=== PATIENT | female | born 1965 | race Caucasian/White ===

== ENCOUNTER 2021-05-19 19:05 | Inpatient (IN) | payer BC, SELFPAY ==
--- NOTE | ~2021-05-19 | US_ITS ---
EXAMINATION: US venous doppler [facility] DATE: 05/20/2021 10:35 INDICATION: Pleuritic right chest pain TECHNIQUE: [place]illa scale images without and with compression and Doppler images of the bilateral lower e xtremity veins were obtained. COMPARISON: None FINDINGS: The right common femoral vein, profunda femoral vein, femoral vein, popliteal vein, peroneal trunk, p osterior tibial veins, and greater saphenous vein are patent. The left common femoral vein, profunda femoral vein, femoral vein, popliteal vein, peroneal trunk, po sterior tibial veins, and greater saphenous vein are patent. A 4.3 cm left Rai cyst is noted. IMPRESSION: 1. Patent bilateral lower extremity veins. No evidence of deep venous thrombosis. Reviewed, dictated and finalized at location B. IMPRESSION: 1. Patent bilateral lower extremity veins. No evidence of deep venous thrombosi s.
--- NOTE | ~2021-05-19 | CT_ITS ---
EXAMINATION: CTA chest PE abdomen pel DATE: 05/19/2021 20:38 INDICATION: Right-sided pleuritic chest pain and right-sided abdominal pain. TECHNIQUE: Computed tomography (CT) pulmonary angiogram of the chest was performed with 100 mL Omnipa que-350 intravenous contrast. Additional 3D reconstructions utilizing coronal maximum intensity proje ction (MIP) were performed. CT of the abdomen and pelvis was performed with intravenous contrast util izing the same contrast bolus following a short delay. Automated exposure control and iterative recon struction technique were employed. The dose-length product was 1265.46 mGy-cm. COMPARISON: None FINDINGS: Chest: Excellent contrast opacification of the pulmonary arteries. There is mild streak artifact from dense contrast in the superior vena cava and right atrium. Mild scattered respiratory motion artifact which decreases sensitivity and specificity in some of the smaller subsegmental pulmonary arteries. Low-at tenuation pulmonary arterial filling defects within multiple pulmonary arteries in both lungs includi ng the lobar and multiple segmental and subsegmental pulmonary arteries in the left and right lower l obes and the medial segmental pulmonary artery of the right middle lobe consistent with pulmonary emb olism with moderate clot burden. There is a peripheral region of groundglass opacity in the posterior basilar segment of the left lower lobe downstream from one of the pulmonary emboli and suspicious fo r pulmonary infarct although differential would include pneumonia. There are bands of discoid atelect asis in the lingula and bilateral lower lobes. Diffuse subtle groundglass opacity throughout the lung s with small regions of a lucent subsegmental air trapping likely related to expiratory phase of imag ing with concave posterior wall of the intrathoracic trachea. Dependently layering small right pleura l effusion. Heart size is normal. No leftward bowing of the ventricular septum to suggest right heart strain. No pericardial effusion. Thoracic aorta is normal in caliber with no dissection. There is fl uid and debris within the somewhat patulous mid to distal esophagus. No pathologically enlarged thora cic lymphadenopathy. Mild lower thoracic levoscoliosis with mild thoracic spondylosis. Abdomen/pelvis: Liver, gallbladder, spleen, pancreas, bilateral adrenal glands and kidneys are normal. Moderate amoun t of stool scattered throughout the colon. No dilated loops of bowel to suggest obstruction. The appe ndix is not visualized. No pericecal inflammatory change to suggest acute appendicitis. The uterus is not identified and has likely been surgically resected. Bladder is normal. No free intraperitoneal g as or fluid. No pathologically enlarged abdominal or pelvic lymphadenopathy. There is calcified ather osclerosis of the aorta and many of the other arteries. Incidentally noted are 3 right-sided renal ar teries. Small fat-containing umbilical hernia with suggestion of possible prior mesh repair. Mild lum bar spondylosis. IMPRESSION: 1. Bilateral pulmonary emboli with moderate clot burden and likely pulmonary infarct in the posterior basilar right lower lobe. Differential for the latter includes less likely pneumonia. 2. No acute intra-abdominal/pelvic process. Reviewed, dictated and finalized at location A. IMPRESSION: 1. Bilateral pulmonary emboli with moderate clot burden and likely pulmonary in farct in the posterior basilar right lower lobe. Differential for the latter in cludes less likely pneumonia. 2. No acute intra-abdominal/pelvic process.
[2021-05-19 19:10] VITALS: BP 104/65; PULSE 105; RESP 20; TEMP 36.7; O2SAT 99
--- NOTE | 2021-05-19 19:36 | ED.GENADULT ---
HPI - General Adult General Chief complaint: Abdominal Pain Stated complaint: side pain/hemoptysis Time Seen by Provider: 05/19/21 19:24 History of Present Illness HPI narrative: Patient is a 55-year-old female presents the emergency department with chief complaint of right-sided upper back and abdominal pain. The patient reports that she has a sharp type pain states is worse with deep breaths and worse with movement the patient also reports she has pain in the right side of her abdomen. Patient reports she was seen in the emergency department [facility]. The patient reports she had a IV contrast CT scan of the chest abdomen pelvis and was told that she may have diverticulitis she was treated with antibiotics but the patient reports she continues to have pain. Patient states not improved by anything. Related Data Allergies Allergy/AdvReac Type Severity Reaction Status Date / Time No Known Allergies Allergy Verified 05/19/21 19:49 Review of Systems Review of Systems: Narrative: A 10 system review of systems was completed on the patient and is negative except for what is stated in the HPI. Nursing and ancillary documentation was reviewed. [facility] Social History Social History Gender identity (if verbalized by the patient): Female Exam Narrative: Exam Narrative: GENERAL: Well-appearing, well-nourished, and in no acute distress. HEAD: Normocephalic, atraumatic. EYES: PERRLA and EOMI. ENT: Nares clear, no rhinorrhea or epistaxis. Mucous membranes moist. NECK: Supple. CHEST: Clear to auscultation. No respiratory distress. Tenderness to palpation in the right posterior hemithorax HEART: Regular rate and rhythm. No murmur heard. Normal peripheral pulses. ABDOMEN: Soft, tender to palpation the right lower quadrant, nondistended, normal active bowel sounds. EXTREMITIES: Normal range of motion. No edema. SKIN: Warm, dry, no rash. NEURO: No focal deficits. Alert and oriented x3. PSYCH: Normal mood and affect. Course Vital Signs Vital signs: Vital Signs Temperature 36.7 C 05/19/21 19:10 Pulse Rate 105 H 05/19/21 19:10 Respiratory Rate 20 05/19/21 19:10 Blood Pressure 104/65 05/19/21 19:10 Pulse Oximetry 99 05/19/21 19:10 Temperature 36.7 C 05/19/21 19:10 Pulse Rate 105 H 05/19/21 19:10 Respiratory Rate 20 05/19/21 19:10 Blood Pressure 104/65 05/19/21 19:10 Pulse Oximetry 99 05/19/21 19:10 Medical Decision Making Vital Signs Vital Signs: Vital Signs Temperature 36.7 C 05/19/21 19:10 Pulse Rate 105 H 05/19/21 19:10 Respiratory Rate 20 05/19/21 19:10 Blood Pressure 104/65 05/19/21 19:10 Pulse Oximetry 99 05/19/21 19:10 Temperature 36.7 C 05/19/21 19:10 Pulse Rate 105 H 05/19/21 19:10 Respiratory Rate 20 05/19/21 19:10 Blood Pressure 104/65 05/19/21 19:10 Pulse Oximetry 99 05/19/21 19:10 Lab Data Result diagrams: 05/19/21 19:44 05/19/21 19:44 Labs: Lab Results 05/19/21 05/19/21 05/19/21 Range/Units 19:44 19:44 19:44 WBC 10.2 H (4.5-10.0) K/mm3 RBC 4.23 (4.2-5.4) M/mm3 Hgb 12.7 (12.0-15.0) g/dL Hct 38.8 (37.0-47.0) % MCV 91.7 (80-100) fl MCH 30.0 (26-34) pg MCHC 32.7 (32-36) g/dl RDW 13.5 (11.5-14.5) % Plt Count 219 (150-375) k/mm3 MPV 11.8 H (7.4-10.4) fl Immature Gran % (Auto) 0.7 H (0-0.5) % Neut % (Auto) 82.0 H (45.5-73.1) % Lymph % (Auto) 8.5 L (18.3-44.2) % Wilkinson % (Auto) 7.7 (2.6-8.5) % Eos % (Auto) 0.9 (0-4.4) % Baso % (Auto) 0.2 (0.2-1.2) % Lymph # (Auto) 0.86 L (0.9-3.2) K/mm3 Wilkinson # (Auto) 0.8 H (0.1-0.6) K/mm3 Eos # (Auto) 0.1 (0-0.3) K/mm3 Baso # (Auto) 0.0 (0.0-0.1) K/mm3 Abs Immat Gran (auto) 0.07 H (0.00-0.031) K/mm3 Absolute Neuts (auto) 8.3 H (1.3-6.7) K/mm3 Absolute Nucleated RBC 0.0 (0.0-0
--- NOTE | 2021-05-19 19:39 | ECG_ITS ---
Measurements Intervals [place] Rate: 84 P: 15 AK: 150 QRS: -20 QRSD: 96 T: 29 QT: 406 QTc: 480 Interpretive Statements SINUS RHYTHM NONSPECIFIC T-WAVE ABNORMALITY- INFERIOR LEADS BORDERLINE ECG Electronically Signed On 05-20-2021 15:03:24 CDT by Fabian Stevenson D.O.
[2021-05-19] MEDS: ONDANSETRON INJ 4 MG/2 ML VIAL IV PUSH (19:49)
[2021-05-19] MEDS: MORPHINE SULFATE (*CRX) 4 MG/ML INJ IV PUSH (19:49)
[2021-05-19] MEDS: SODIUM CHLORIDE 0.9% IV 1,000 ML 999 ML IV CONT ×2 (19:49→22:43)
[2021-05-19 19:50] LABS: Basophils Percent Auto 0.2 % (0.2-1.2); Eosinophils Absolute Auto 0.1 K/mm3 (0-0.3); Eosinophils Percent Auto 0.9 % (0-4.4); Hematocrit 38.8 % (37.0-47.0); Hemoglobin 12.7 g/dL (12.0-15.0); Immature Granulocyte Absolute 0.07 K/mm3 (0.00-0.031); Immature Granulocyte Percent A 0.7 % (0-0.5); Lymphocytes Absolute Auto 0.86 K/mm3 (0.9-3.2); Lymphocytes Percent Auto 8.5 % (18.3-44.2); Mean Corpuscular HGB Conc 32.7 g/dl (32-36); Mean Corpuscular Volume 91.7 fl (80-100); Mean Platelet Volume 11.8 fl (7.4-10.4); Monocytes Absolute Auto 0.8 K/mm3 (0.1-0.6); Monocytes Percent Auto 7.7 % (2.6-8.5); Neutrophils Absolute Auto 8.3 K/mm3 (1.3-6.7); Platelet Count Result 219 k/mm3 (150-375); Red Blood Count 4.23 M/mm3 (4.2-5.4); Red Cell Distribution Width 13.5 % (11.5-14.5); White Blood Count 10.2 K/mm3 (4.5-10.0)
[2021-05-19] MEDS: KETOROLAC 30 MG/ML VIAL (*BKC) IV PUSH (19:50)
[2021-05-19 20:04] LABS: Lactic Acid Reflex 1.2 mmol/L (0.7-2.1); Partial Thromboplastin Time 29.1 SECONDS (22.3-36.8); Prothrombin Time 12.9 Seconds (11.1-14.7)
[2021-05-19 20:05] LABS: Alanine Aminotransferase 8 U/L (4-35); Albumin Level 3.4 g/dL (3.5-5.1); Alkaline Phosphatase 84 U/L (38-126); Anion Gap 8 mmol/L (8-16); Aspartate Amino Transferase 17 U/L (14-36); Bilirubin,Total 0.8 mg/dL (0.2-1.3); Blood Urea Nitrogen 8 mg/dL (7-17); Calcium 9.4 mg/dL (8.4-10.2); Carbon Dioxide 29 mmol/L (22-30); Chloride 94 mmol/L (98-107); Estimated CRCL calculation 81 ml/min; Estimated Glomerular Filt Rate > 60; Glucose 99 mg/dL (65-110); Lipase 31 U/L (23-300); Magnesium 0.8 mg/dL (1.6-2.3); Sodium 131 mmol/L (137-145)
[2021-05-19 20:16] LABS: Troponin I < 0.012 ng/mL (0.000-0.034)
[2021-05-19 21:05] LABS: Add Urine Microscopic? NO; Appearance Urine Clear (Clear); Bilirubin Urine Negative (Negative); Blood Urine Negative (Negative); Color Urine Yellow (Yellow); Glucose Urine UA Negative (Negative); Ketones Urine Negative (Negative); Leukocyte Esterase Ur Negative LEU/UL (Negative); Nitrate Urine Negative (Negative); Protein Urine Negative (Negative); Specific Grav Ur 1.011 (1.001-1.035); Urobilinogen Urine Negative mg/dL (<2.0)
--- NOTE | 2021-05-19 21:14 | PM.IMHP ---
H&P: HPI History of Present Illness Date/Time: 05/19/21 21:14 Chief Complaint: CHEST PAIN Narrative: THIS IS A 55-YEAR-OLD FEMALE WITH PAST MEDICAL HISTORY SIGNIFICANT FOR TOBACCO DEPENDENCE, DYSLIPIDEMIA, GERD, HYPERTENSION, PATIENT WAS RECENTLY DISCHARGED FROM [facility] WHICH HE WAS TREATED FOR DIVERTICULITIS AND DISCHARGED HOME SHE PRESENTED TO THE EMERGENCY ROOM DUE TO CONSTANT NAGGING PAIN AND WORSENED BY DEEP INSPIRATION ON THE RIGHT SIDE OF HER RIBCAGE AND HEMOPTYSIS. SHE ALSO COMPLAIN OF SOME LIGHTHEADEDNESS NO PND NO ORTHOPNEA NO SHORTNESS OF BREATH NO CLAUDICATION NO SYNCOPE OR NEAR SYNCOPE NO NAUSEA NO VOMITING NO DIARRHEA STATES THAT SHE HAS BEEN CONSTIPATED FOR 5 DAYS DENIES ANY FEVERS RIGORS OR CHILLS. PRELIMINARY WORKUP WAS SIGNIFICANT FOR ACUTE PULMONARY EMBOLISM. Review of Systems Review of Systems: Narrative: PAIN WITH DEEP INSPIRATION Constitutional: Constitutional: Denies chills, Denies fatigue, Denies fever(s) and Denies weakness Eyes: Eyes: Denies change in vision ENT: Reports dizziness, Denies nasal congestion, Denies nasal discharge and Denies nasal obstruction Cardiovascular: Cardiovascular: Denies irregular heart rhythm, Reports lightheadedness, Denies radiating jaw, neck or arm pain, Denies palpitations, Denies dyspnea, Denies dyspnea on exertion and Denies orthopnea Respiratory: Respiratory: Reports hemoptysis and Reports pain on inspiration Gastrointestinal: Gastrointestinal: Reports constipation, Denies GI cramping, Denies dyspepsia, Denies diarrhea, Denies nausea and Denies vomiting Genitourinary: Genitourinary: Reports no additional female genitourinary complaints Musculoskeletal: Musculoskeletal: Reports no additional musculoskeletal complaints Integumentary/Breasts: Skin/Breast: Reports system reviewed and no additional complaints, except as docu Neurologic: Reports system reviewed and no additional complaints, except as documented Psychiatric: Psychiatric: Reports no additional psychiatric complaints Endocrine: Endocrine: Reports no additional endocrine complaints Hematologic/Lymphatic: Hematologic/Lymphatic: Reports no additional hematologic/lymphatic complaints Allergic/Immunologic: Allergic/Immunologic: Reports no additional allergic/immunologic complaints PMFSH Social History Social History Gender identity (if verbalized by the patient): Female Meds Home Medications and Allergies Home Medications Medication Instructions Recorded Confirmed Type alprazolam 0.25 mg PO BID 05/19/21 05/19/21 History alprazolam 1 mg PO HS 05/19/21 05/19/21 History atorvastatin 20 mg PO DAILY 05/19/21 05/19/21 History cyclobenzaprine 5 mg PO BID PRN 05/19/21 05/19/21 History dextroamphetamine-amphetamine 5 mg PO DAILY 05/19/21 05/19/21 History fenofibrate nanocrystallized 145 mg PO DAILY 05/19/21 05/19/21 History fluoxetine 40 mg PO DAILY 05/19/21 05/19/21 History lidocaine 1 patch TRANSDERMAL DAILY 05/19/21 05/19/21 History pantoprazole 40 mg PO DAILY 05/19/21 05/19/21 History tramadol 50 mg PO Q6H PRN 05/19/21 05/19/21 History trazodone 100 mg PO HS 05/19/21 05/19/21 History triamterene-hydrochlorothiazid 1 tablet PO DAILY 05/19/21 05/19/21 History Allergies Allergy/AdvReac Type Severity Reaction Status Date / Time No Known Allergies Allergy Verified 05/19/21 19:49 Vital Signs Vital Signs - 24 hr 05/19/21 19:10 Temperature 98.0 F Pulse Rate 105 H Respiratory Rate 20 Blood Pressure 104/65 Pulse Oximetry 99 Exam Narrative: Exam Narrative: PATIENT IS LAYING IN [place] Const: General: comfortable, no acute distress, well developed, alert and awake Nutritional Appearance: average body habitus Orientation/consciousness: patient oriented x3 HENMT: Head: normal to inspection, normocephalic and atraumatic Ears: hearing grossly normal bilaterally General nose exam: Normal external nose present Face and sin
[2021-05-19] MEDS: HEPARIN SOD/D5W 100 UNITS/ML 25,000 UNITS/250 ML BAG 14 UNITS IV CONT (21:40)
[2021-05-19] MEDS: HEPARIN SODIUM 5,000 UNITS/ML VIAL 6000 UNITS IV PUSH (21:41)
[2021-05-19 21:45] LABS: Basophils Percent Auto 0.2 % (0.2-1.2); Eosinophils Absolute Auto 0.1 K/mm3 (0-0.3); Eosinophils Percent Auto 0.9 % (0-4.4); Hematocrit 36.1 % (37.0-47.0); Hemoglobin 11.5 g/dL (12.0-15.0); Immature Granulocyte Absolute 0.06 K/mm3 (0.00-0.031); Immature Granulocyte Percent A 0.7 % (0-0.5); Lymphocytes Absolute Auto 0.91 K/mm3 (0.9-3.2); Lymphocytes Percent Auto 10.4 % (18.3-44.2); Mean Corpuscular HGB Conc 31.9 g/dl (32-36); Mean Corpuscular Hemoglobin 29.6 pg (26-34); Mean Corpuscular Volume 92.8 fl (80-100); Mean Platelet Volume 11.2 fl (7.4-10.4); Monocytes Absolute Auto 0.7 K/mm3 (0.1-0.6); Monocytes Percent Auto 8.1 % (2.6-8.5); Neutrophils Percent Auto 79.7 % (45.5-73.1); Platelet Count Result 208 k/mm3 (150-375); Red Blood Count 3.89 M/mm3 (4.2-5.4); Red Cell Distribution Width 13.5 % (11.5-14.5); White Blood Count 8.8 K/mm3 (4.5-10.0)
[2021-05-19 21:55] LABS: INR 1.1; Partial Thromboplastin Time 33.6 SECONDS (22.3-36.8); Prothrombin Time 13.7 Seconds (11.1-14.7)
[2021-05-19 22:30] VITALS: BP 92/58; PULSE 86; RESP 18; O2SAT 91
[2021-05-19 23:12] VITALS: O2SAT 97
--- NOTE | 2021-05-19 23:42 | ADMIMU ---
This patient, Vannessa Javier, was admitted to IMU status, and placed in IMU Room 231-01 at 2332. Patient/family oriented to hospital policies and general routines including ID bracelet, bed and alarms, visiting hours, pain management, procedures, bathroom and other care routines, personal items, smoking policy, room service/diet, and visiting hours. Pt denies having any valuables. Information on how to activate the Rapid Response Team has been discussed. Patient/Family are encouraged to report perceived risks to care and to ask questions if they do not understand what they are told or what they should do.
[2021-05-19 23:50] VITALS: BMI 29.6
[2021-05-19 23:51] VITALS: BP 108/65; PULSE 82; RESP 20; TEMP 35.5; O2SAT 99
[2021-05-20] VITALS (30 sets, daily range): BP systolic 97–110; BP diastolic 52–62; PULSE 73–103; RESP 16–24; TEMP 36.4–36.9; O2SAT 88–100
--- NOTE | 2021-05-20 | ECHO_ITS ---
Patient Info Name: Vannessa Javier Age: 55 years : 1965 Gender: Female Ht: 69 in Wt: 200 lbs BSA: 2.12 m2 HR: 89 bpm BP: 110 / 61 mmHg Technical Quality: Good Exam Date: 05/20/2021 8:36 AM Exam Location: [facility] Patient Status: Inpatient Admit Date: 05/19/2021 Staff Ordering Physician: Marty Quevedo MD [employer] Director: Eric Treviño, KAYCEE, RT Attending Provider: Marty Quevedo MD Referring Physician: Sae ABDULLAHI; Exam Type: CA echo dop color flow w con Study Info Indications I26.99 - Other pulmonary embolism without acute cor pulmonale Complete two-dimensional, color flow and Doppler transthoracic echocardiogram is performed with contrast to opacify the left ventricle and to improve the deliniation of the left ventricle endocardial borders. Summary 1. Left ventricular chamber dimension is normal. 2. Left ventricular systolic function is normal, estimated at 65-70%. 3. There is mildly increased left ventricular wall thickness. 4. The left ventricular diastolic function is grade I diastolic dysfunction. 5. Definity contrast administered improved wall motion interpretation. 6. E/e' 10 is mildly elevated. 7. There is mild aortic valve sclerosis. 8. Dilated inferior vena cava with >50% collapse upon inspiration consistent with elevated right atrial pressure, 10 mmHg. Left Ventricle E/e' 10 is mildly elevated. Definity contrast administered improved wall motion interpretation. Left ventricular chamber dimension is normal. Left ventricular systolic function is normal, estimated at 65-70%. There is mildly increased left ventricular wall thickness. The left ventricular diastolic function is grade I diastolic dysfunction. Right Ventricle Right ventricular systolic function is normal based on a normal TAPSE 2.3 cm. Right ventricular chamber dimension is not well visualized. Left Atria Left atrial chamber dimension is normal. Right Atria Right atrial chamber dimension is normal. Aortic Valve The aortic valve is trileaflet. There is mild aortic valve sclerosis. There is no aortic valve stenosis. There is no aortic valve regurgitation. Pulmonic Valve There is no pulmonic regurgitation. Mitral Valve There is no mitral valve stenosis. There is no mitral valve regurgitation. Tricuspid Valve There is no tricuspid valve regurgitation. Pericardium/Pleural There is no pericardial effusion. Inferior Vena Cava Dilated inferior vena cava with >50% collapse upon inspiration consistent with elevated right atrial pressure, 10 mmHg. Aorta The aortic root size at the sinus of Valsalva is normal. Left Ventricular Outflow Tract Name Value Normal LVOT 2D LVOT Diameter 2.04 cm LVOT Doppler LVOT Peak Gradient 5 mmHg LVOT Mean Gradient 3 mmHg LVOT VTI 23.50 cm LVOT VTI/AV VTI Ratio 0.92 LVOT Stroke Volume 76.67 ml LVOT CO 6.81 l/min LVOT CI 3.21 L/min/m2 Mitral V
[2021-05-20] MEDS: ALBUTEROL SULFATE NEB 2.5 MG/0.5 ML INH INHALATION ×6 (00:27→20:12)
[2021-05-20 04:16] LABS: Basophils Percent Auto 0.2 % (0.2-1.2); Eosinophils Absolute Auto 0.1 K/mm3 (0-0.3); Eosinophils Percent Auto 1.4 % (0-4.4); Hematocrit 35.5 % (37.0-47.0); Hemoglobin 11.3 g/dL (12.0-15.0); Immature Granulocyte Absolute 0.05 K/mm3 (0.00-0.031); Immature Granulocyte Percent A 0.6 % (0-0.5); Lymphocytes Absolute Auto 1.42 K/mm3 (0.9-3.2); Lymphocytes Percent Auto 16.6 % (18.3-44.2); Mean Corpuscular HGB Conc 31.8 g/dl (32-36); Mean Corpuscular Hemoglobin 29.9 pg (26-34); Mean Corpuscular Volume 93.9 fl (80-100); Mean Platelet Volume 10.9 fl (7.4-10.4); Monocytes Absolute Auto 0.7 K/mm3 (0.1-0.6); Monocytes Percent Auto 7.7 % (2.6-8.5); Neutrophils Absolute Auto 6.3 K/mm3 (1.3-6.7); Neutrophils Percent Auto 73.5 % (45.5-73.1); Platelet Count Result 235 k/mm3 (150-375); Red Blood Count 3.78 M/mm3 (4.2-5.4); Red Cell Distribution Width 13.5 % (11.5-14.5); White Blood Count 8.6 K/mm3 (4.5-10.0)
[2021-05-20 04:33] LABS: Partial Thromboplastin Time 128.4 SECONDS (22.3-36.8)
[2021-05-20] MEDS: PERFLUTREN LIPID MICROSPHERES 1.5 ML VIAL DILUTED TO 10 ML TOTAL VOLUME IV PUSH (09:10)
[2021-05-20] MEDS: PANTOPRAZOLE 40 MG TABLET PO (09:29)
[2021-05-20] MEDS: FENOFIBRATE NANOCRYSTALLIZED 145 MG TABLET PO (09:29)
[2021-05-20] MEDS: FLUoxetine HCL 20 MG CAPSULE 40 MG PO (09:29)
[2021-05-20] MEDS: ATORVASTATIN 20 MG TABLET PO (09:29)
[2021-05-20] MEDS: TRIAMTERENE 37.5 MG/HCTZ 25 MG (MAXZIDE) TABLET 1 TAB PO (09:29)
[2021-05-20] MEDS: LIDOCAINE 5% PATCH 1 PATCH TRANSDERM (09:30)
[2021-05-20] MEDS: ALPRAZolam (*CRX) 0.25 MG TABLET PO ×2 (09:31→17:43)
[2021-05-20 11:27] LABS: Partial Thromboplastin Time 65.1 SECONDS (22.3-36.8)
[2021-05-20] MEDS: HEPARIN SODIUM 5,000 UNITS/ML VIAL 3000 UNITS IV PUSH (11:33)
[2021-05-20 11:43] LABS: Magnesium 0.8 mg/dL (1.6-2.3)
[2021-05-20] MEDS: traMADol HCL (*CRX) 50 MG TABLET PO (13:55)
[2021-05-20] MEDS: MAGNESIUM SULF 2 GM/WATER 50ML 2 GM/50 ML BAG IVPB (13:55)
[2021-05-20] MEDS: HEPARIN SOD/D5W 100 UNITS/ML 25,000 UNITS/250 ML BAG 14 UNITS IV CONT (13:57)
--- NOTE | 2021-05-20 14:40 | PM.IMPN ---
Progress Note: A&P Assessment and Plan (1) Pulmonary embolism with infarction: Code(s): I26.99 - Other pulmonary embolism without acute cor pulmonale Status: Acute Assessment and Plan: Patient presents with complaints of pleuritic chest pain and hemoptysis. CT of the chest showing bilateral pulmonary emboli and right lower lobe pulmonary infarct. She has splinting on the right. Currently on a heparin drip. Hemoptysis is persistent. Continue heparin drip. Encouraged incentive spirometry use. Encouraged to be out of bed. (2) Hypertension: Code(s): I10 - Essential (primary) hypertension Status: Acute Assessment and Plan: Patient's blood pressure was reviewed on 05/20 Blood pressure soft at times. Will stop Maxide. Continue to follow. (3) Tobacco dependence: Code(s): F17.200 - Nicotine dependence, unspecified, uncomplicated Status: Acute Assessment and Plan: Pateitn educated about the benefit of smoking cessation. (4) Hypomagnesemia: Code(s): E83.42 - Hypomagnesemia Status: Acute Assessment and Plan: Mag level not replaced yesterday per patient wishes. Mag level still low. IV mag ordered. Follow and replace as needed (5) Anxiety: Code(s): F41.9 - Anxiety disorder, unspecified Status: Acute Assessment and Plan: Patient on fluoxetine and TID Xanax (0.25mg bid and 1mg qhs). She has odd affect today. Will decrease Xanax at night and reassess in the morning. Subjective Date/time seen: 05/20/21 14:40 Interval history: 55yo female with HTN here for pleuritic chest pain and hemoptysis and found to have PE. Still 'achy' in the right flanks. Currently on 3L. No CP. No n/v. Complains of sore throat. Persistent hemoptysis. Mild LAFLEUR when up to bedside commode. Family in the room and they were updated with patient permission. Exam Narrative: Exam Narrative: AF 98.5 97/60 91 20 96% 2L Gen - NARD Chest - bibasilar R>L inspiratory crackles, mild right sided splinting noted. CV - RRR S1/S2; Tele showing no significant dysrhythmias Abd - Soft, NT/ND, Positive BS Ext - No pedal edema. 2+ DP bilaterally Psych - Nml mood but odd affect Skin - Warm and dry Objective Data Vital Signs Vital Signs: Vital Signs - 24 hr 05/19/21 19:10 05/19/21 22:30 05/19/21 23:12 Temperature 98.0 F Pulse Rate 105 H 86 Respiratory Rate 20 18 Blood Pressure 104/65 92/58 L Pulse Oximetry 99 91 97 05/19/21 23:51 05/20/21 00:00 05/20/21 00:05 Temperature 96 F L Pulse Rate 82 81 78 Respiratory Rate 20 20 Blood Pressure 108/65 Pulse Oximetry 99 92 05/20/21 00:15 05/20/21 00:30 05/20/21 02:00 Temperature Pulse Rate 84 78 89 Respiratory Rate 20 20 Blood Pressure Pulse Oximetry 97 05/20/21 04:00 05/20/21 04:51 05/20/21 06:00 Temperature 97.7 F Pulse Rate 103 H 82 81 Respiratory Rate 20 Blood Pressure 110/61 Pulse Oximetry 92 100 05/20/21 07:58 05/20/21 08:00 05/20/21 08:11 Temperature 97.8 F Pulse Rate 79 93 80 Respiratory Rate 18 16 18 Blood Pressure 103/57 L Pulse Oximetry 88 L 94 88 L 05/20/21 09:27 05/20/21 10:00 05/20/21 12:00 Temperature 98.5 F Pulse Rate 93 88 Respiratory Rate 20 Blood Pressure 97/60 L Pulse Oximetry 93 96 05/20/21 12:36 05/20/21 12:47 05/20/21 14:00 Temperature Pulse Rate 90 91 91 Respiratory Rate 20 20 Blood Pressure Pulse Oximetry Intake/Output Intake/Output: Intake & Output 05/17/21 05/18/21 05/19/21 05/20/21 23:59 23:59 23:59 23:59 Intake Total 1000 490 Output Total 650 Balance 1000 -160 Meds/Results Medications: Active Medications Generic Name Dose Route Start Last Admin Trade Name Freq PRN Reason Stop Dose Admin Albuterol 2.5 mg 05/20/21 00:00 05/20/21 12:36 Albuterol Sulfate Neb 2.5 Mg/0.5 Ml Inh INHALATION 2.5 mg Q4HRT KRUPA Administration Alprazolam 1 m
[2021-05-20 18:08] LABS: Partial Thromboplastin Time 107.4 SECONDS (22.3-36.8)
[2021-05-20] MEDS: traZODone HCL 50 MG TABLET 100 MG PO (21:01)
[2021-05-20] MEDS: ALPRAZolam (*CRX) 0.5 MG TABLET PO (21:02)
[2021-05-21] VITALS (24 sets, daily range): BP systolic 77–100; BP diastolic 47–69; PULSE 79–92; RESP 16–20; TEMP 35.9–36.6; O2SAT 91–100
[2021-05-21] MEDS: ALBUTEROL SULFATE NEB 2.5 MG/0.5 ML INH INHALATION ×4 (00:10→20:32)
[2021-05-21] MEDS: HEPARIN SODIUM 5,000 UNITS/ML VIAL 3000 UNITS IV PUSH ×2 (01:29→15:11)
[2021-05-21 05:12] LABS: Hemoglobin 11.1 g/dL (12.0-15.0); Mean Corpuscular HGB Conc 32.6 g/dl (32-36); Mean Corpuscular Hemoglobin 30.1 pg (26-34); Mean Corpuscular Volume 92.1 fl (80-100); Platelet Count Result 235 k/mm3 (150-375); Red Blood Count 3.69 M/mm3 (4.2-5.4); Red Cell Distribution Width 13.3 % (11.5-14.5); White Blood Count 6.4 K/mm3 (4.5-10.0)
[2021-05-21 05:24] LABS: Albumin Level 3.1 g/dL (3.5-5.1); Anion Gap 5 mmol/L (8-16); Blood Urea Nitrogen 6 mg/dL (7-17); Calcium 8.7 mg/dL (8.4-10.2); Carbon Dioxide 32 mmol/L (22-30); Chloride 98 mmol/L (98-107); Estimated CRCL calculation 81 ml/min; Estimated Glomerular Filt Rate > 60; Glucose 124 mg/dL (65-110); Magnesium 1.3 mg/dL (1.6-2.3); Phosphorus 3.9 mg/dL (2.5-4.5); Potassium 3.3 mmol/L (3.4-5.0); Sodium 135 mmol/L (137-145)
[2021-05-21 08:16] LABS: Partial Thromboplastin Time 90.2 SECONDS (22.3-36.8)
[2021-05-21] MEDS: HEPARIN SOD/D5W 100 UNITS/ML 25,000 UNITS/250 ML BAG 14 UNITS IV CONT (09:53)
[2021-05-21] MEDS: POTASSIUM CHLORIDE 20 MEQ TABLET 40 MEQ PO (09:54)
[2021-05-21] MEDS: MAGNESIUM SULF 2 GM/WATER 50ML 2 GM/50 ML BAG IVPB (09:54)
[2021-05-21] MEDS: ALPRAZolam (*CRX) 0.25 MG TABLET PO (09:56)
[2021-05-21] MEDS: FENOFIBRATE NANOCRYSTALLIZED 145 MG TABLET PO (09:57)
[2021-05-21] MEDS: PANTOPRAZOLE 40 MG TABLET PO (09:57)
[2021-05-21] MEDS: ACETAMINOPHEN 325 MG TABLET 650 MG PO (09:57)
[2021-05-21] MEDS: FLUoxetine HCL 20 MG CAPSULE 40 MG PO (09:57)
[2021-05-21] MEDS: DOCUSATE SODIUM 100 MG CAPSULE PO (09:57)
[2021-05-21] MEDS: ATORVASTATIN 20 MG TABLET PO (09:57)
[2021-05-21] MEDS: LIDOCAINE 5% PATCH 1 PATCH TRANSDERM (09:57)
--- NOTE | 2021-05-21 15:59 | PM.IMPN ---
Progress Note: A&P Assessment and Plan (1) Pulmonary embolism with infarction: Code(s): I26.99 - Other pulmonary embolism without acute cor pulmonale Status: Acute Assessment and Plan: Patient presents with complaints of pleuritic chest pain and hemoptysis. CT of the chest showing bilateral pulmonary emboli and right lower lobe pulmonary infarct. She has splinting on the right. Currently on a heparin drip. Hemoptysis is persistent. Continue heparin drip. Encouraged incentive spirometry use. Encouraged to be out of bed. Switch to oral agents when pain better. (2) Hypertension: Code(s): I10 - Essential (primary) hypertension Status: Acute Assessment and Plan: Patient's blood pressure was reviewed on 05/21 Blood pressure soft at times so Maxide stopped. BP still soft. Not using much of the narcotics. Continue to follow. (3) Tobacco dependence: Code(s): F17.200 - Nicotine dependence, unspecified, uncomplicated Status: Acute Assessment and Plan: Pateitn educated about the benefit of smoking cessation. (4) Hypomagnesemia: Code(s): E83.42 - Hypomagnesemia Status: Acute Assessment and Plan: Mag level not replaced on admission per patient wishes. Mag level still low yesterday and replaced. Mag level better and replaement ordered again. Follow and replace as needed (5) Anxiety: Code(s): F41.9 - Anxiety disorder, unspecified Status: Acute Assessment and Plan: Patient on fluoxetine and TID Xanax (0.25mg bid and 1mg qhs). She appeared odd and inappropriate so we decreased her Xanax at night and cut back her narcotics. Symptoms improved. Follow Subjective Date/time seen: 05/21/21 15:59 Interval history: 55yo female with HTN here for pleuritic chest pain and hemoptysis and found to have PE. Eating okay. Still having hemoptysis (2 episodes today so far). Up walking to the bathroom. Still with the right lateral chest pain but slightly better since admission. She is using the IS. Exam Narrative: Exam Narrative: AF 97.2 94/63 87 16 93% 3L Gen - NARD Chest - bibasilar R>L inspiratory crackles, nml RR. no conversational dyspnea CV - RRR S1/S2; Tele showing no significant dysrhythmias Abd - Soft, NT/ND, Positive BS Ext - No pedal edema. 2+ DP bilaterally Psych - Nml mood and affect Skin - Warm and dry Objective Data Vital Signs Vital Signs: Vital Signs - 24 hr 05/20/21 16:00 05/20/21 16:40 05/20/21 16:49 Temperature 98.2 F Pulse Rate 90 90 90 Respiratory Rate 24 H 18 18 Blood Pressure 100/52 L Pulse Oximetry 95 95 95 05/20/21 18:00 05/20/21 19:58 05/20/21 20:00 Temperature 97.7 F Pulse Rate 98 94 88 Respiratory Rate 18 Blood Pressure 105/62 Pulse Oximetry 95 94 05/20/21 20:13 05/20/21 20:16 05/20/21 20:22 Temperature Pulse Rate 93 93 91 Respiratory Rate 18 18 18 Blood Pressure Pulse Oximetry 94 05/20/21 22:00 05/20/21 23:31 05/20/21 23:55 Temperature 97.6 F Pulse Rate 94 95 Respiratory Rate 20 Blood Pressure 104/61 Pulse Oximetry 96 94 05/21/21 00:00 05/21/21 00:12 05/21/21 00:25 Temperature Pulse Rate 88 92 90 Respiratory Rate 18 18 Blood Pressure Pulse Oximetry 05/21/21 02:00 05/21/21 03:39 05/21/21 03:48 Temperature Pulse Rate 84 84 87 Respiratory Rate 18 18 Blood Pressure Pulse Oximetry 05/21/21 04:00 05/21/21 06:00 05/21/21 08:00 Temperature 98 F 97 F L Pulse Rate 89 85 85 Respiratory Rate 16 18 Blood Pressure 100/69 90/55 L Pulse Oximetry 92 92 05/21/21 08:01 05/21/21 08:02 05/21/21 08:10 Temperature Pulse Rate 83 83 90 Respiratory Rate 16 16 18 Blood Pressure Pulse Oximetry 93 05/21/21 10:00 05/21/21 11:50 05/21/21 11:58 Temperature Pulse Rate 92 88 90 Respiratory Rate 16 16 Blood Pressure Pulse Oximetry 05/21/21 12:00 05/21/21 14:00 Temperature 97.2 F
[2021-05-21] MEDS: traZODone HCL 50 MG TABLET 100 MG PO (21:05)
[2021-05-21] MEDS: ALPRAZolam (*CRX) 0.5 MG TABLET PO (21:05)
[2021-05-21 22:14] LABS: Partial Thromboplastin Time 87.6 SECONDS (22.3-36.8)
[2021-05-22] VITALS (24 sets, daily range): BP systolic 94–105; BP diastolic 57–70; PULSE 70–102; RESP 16–22; TEMP 36.5–37.6; O2SAT 84–95
[2021-05-22] MEDS: ALBUTEROL SULFATE NEB 2.5 MG/0.5 ML INH INHALATION ×6 (00:11→21:29)
[2021-05-22] MEDS: HEPARIN SOD/D5W 100 UNITS/ML 25,000 UNITS/250 ML BAG 16 UNITS IV CONT (03:48)
[2021-05-22 05:04] LABS: Partial Thromboplastin Time 65.8 SECONDS (22.3-36.8)
[2021-05-22 05:07] LABS: Anion Gap 4 mmol/L (8-16); Blood Urea Nitrogen 8 mg/dL (7-17); Calcium 8.8 mg/dL (8.4-10.2); Carbon Dioxide 31 mmol/L (22-30); Chloride 100 mmol/L (98-107); Estimated CRCL calculation 92 ml/min; Estimated Glomerular Filt Rate > 60; Glucose 105 mg/dL (65-110); Magnesium 1.5 mg/dL (1.6-2.3); Sodium 135 mmol/L (137-145)
[2021-05-22] MEDS: HEPARIN SODIUM 5,000 UNITS/ML VIAL 3000 UNITS IV PUSH (06:11)
[2021-05-22] MEDS: MAGNESIUM SULF 2 GM/WATER 50ML 2 GM/50 ML BAG IVPB (08:43)
[2021-05-22] MEDS: LIDOCAINE 5% PATCH 1 PATCH TRANSDERM (08:45)
[2021-05-22] MEDS: ALPRAZolam (*CRX) 0.25 MG TABLET PO ×2 (08:45→16:37)
[2021-05-22] MEDS: FLUoxetine HCL 20 MG CAPSULE 40 MG PO (08:45)
[2021-05-22] MEDS: DOCUSATE SODIUM 100 MG CAPSULE PO (08:45)
[2021-05-22] MEDS: PANTOPRAZOLE 40 MG TABLET PO (08:45)
[2021-05-22] MEDS: ATORVASTATIN 20 MG TABLET PO (08:45)
[2021-05-22] MEDS: FENOFIBRATE NANOCRYSTALLIZED 145 MG TABLET PO (08:45)
[2021-05-22] MEDS: traMADol HCL (*CRX) 50 MG TABLET PO (08:48)
[2021-05-22 12:18] LABS: Partial Thromboplastin Time 95.9 SECONDS (22.3-36.8)
--- NOTE | 2021-05-22 16:30 | PM.IMPN ---
Progress Note: A&P Assessment and Plan (1) Pulmonary embolism with infarction: Code(s): I26.99 - Other pulmonary embolism without acute cor pulmonale Status: Acute Assessment and Plan: Patient presents with complaints of pleuritic chest pain and hemoptysis. She was recently hospitalized. CT of the chest showing bilateral pulmonary emboli and right lower lobe pulmonary infarct. She has splinting on the right but better. Currently on a heparin drip. Hemoptysis is persistent. Continue heparin drip. Encouraged incentive spirometry use. Encouraged to be out of bed. Switch to oral agents when pain better and off O2. Eliquis with no co-pay. (2) Hypertension: Code(s): I10 - Essential (primary) hypertension Status: Acute Assessment and Plan: Patient's blood pressure was reviewed on 05/22 Blood pressure soft at times and dropped to 77/47 yesterday not associated with narcotics. Maxide already had been stopped. Eating well. Continue to follow. (3) Tobacco dependence: Code(s): F17.200 - Nicotine dependence, unspecified, uncomplicated Status: Acute Assessment and Plan: [place] educated about the benefit of smoking cessation. (4) Hypomagnesemia: Code(s): E83.42 - Hypomagnesemia Status: Acute Assessment and Plan: Mag level not replaced on admission per patient wishes. Mag level has been low but improving with replacement. Follow and replace as needed (5) Anxiety: Code(s): F41.9 - Anxiety disorder, unspecified Status: Acute Assessment and Plan: Patient on fluoxetine and TID Xanax (0.25mg bid and 1mg qhs). She appeared odd and inappropriate so we decreased her Xanax at night and cut back her narcotics. She is not requiring much in the way of pain medication. Mood stable now. Follow. Subjective Date/time seen: 05/22/21 16:30 Interval history: 55yo female with HTN here for pleuritic chest pain and hemoptysis and found to have PE. No BM x 8 days. Has a hx of constipation. She normally takes a stool softener at bedtime but was taken off this recently. Sliaght nausea after eating. Up walking to the BR. Pleuritic CP better. Only one episode of hemoptysis. Exam Narrative: Exam Narrative: AF 97.7 104/61 100 20 95% 1L Gen - NARD Chest - right mid and lower lung field inspiratory crackles, nml RR CV - RRR S1/S2; Tele showing no significant dysrhythmias Abd - Soft, NT/ND, Positive BS Ext - No pedal edema. 2+ DP bilaterally Psych - Nml mood and affect Skin - Warm and dry Objective Data Vital Signs Vital Signs: Vital Signs - 24 hr 05/21/21 18:00 05/21/21 20:00 05/21/21 20:35 Temperature 97.6 F Pulse Rate 85 87 84 Respiratory Rate 18 20 Blood Pressure 98/69 L Pulse Oximetry 97 93 05/21/21 20:45 05/21/21 22:00 05/21/21 23:13 Temperature Pulse Rate 81 79 Respiratory Rate 20 Blood Pressure Pulse Oximetry 93 91 05/22/21 00:00 05/22/21 00:13 05/22/21 00:19 Temperature 98.6 F Pulse Rate 88 80 82 Respiratory Rate 18 16 20 Blood Pressure 100/68 Pulse Oximetry 93 05/22/21 02:00 05/22/21 03:51 05/22/21 04:00 Temperature 98.7 F Pulse Rate 80 70 Respiratory Rate 18 Blood Pressure 105/70 Pulse Oximetry 92 95 05/22/21 04:05 05/22/21 04:11 05/22/21 06:00 Temperature Pulse Rate 79 75 77 Respiratory Rate 16 16 Blood Pressure Pulse Oximetry 05/22/21 08:00 05/22/21 08:28 05/22/21 10:00 Temperature 98.2 F Pulse Rate 80 90 Respiratory Rate 22 H Blood Pressure 94/62 L Pulse Oximetry 93 88 L 05/22/21 11:22 05/22/21 11:30 05/22/21 12:00 Temperature 97.7 F Pulse Rate 88 91 102 H Respiratory Rate 16 20 22 H Blood Pressure 104/61 Pulse Oximetry 95 05/22/21 14:00 05/22/21 15:11 05/22/21 15:18 Temperature Pulse Rate 90 88 100 Respiratory Rate 18 20 Blood Pressure Pulse Oximetry 05/22/21 16:00 Temperature Pulse
[2021-05-22] MEDS: MAGNESIUM HYDROXIDE SUSP 30 ML UDC PO (17:44)
[2021-05-22 18:44] LABS: Partial Thromboplastin Time 77.1 SECONDS (22.3-36.8)
[2021-05-22] MEDS: HEPARIN SOD/D5W 100 UNITS/ML 25,000 UNITS/250 ML BAG 18 UNITS IV CONT (19:37)
[2021-05-22] MEDS: FAMOTIDINE 20 MG TABLET PO (20:35)
[2021-05-22] MEDS: traZODone HCL 50 MG TABLET 100 MG PO (20:35)
[2021-05-22] MEDS: ALPRAZolam (*CRX) 0.5 MG TABLET PO (20:35)
[2021-05-23] VITALS (13 sets, daily range): BP systolic 88–98; BP diastolic 57–68; PULSE 80–99; RESP 16; TEMP 36.9; O2SAT 88–96
[2021-05-23] MEDS: ALBUTEROL SULFATE NEB 2.5 MG/0.5 ML INH INHALATION ×4 (00:37→14:11)
--- NOTE | 2021-05-23 02:50 | PC.NURSE ---
This patient, Vannessa Javier, was transferred to [facility] on 05/23/21 at 0245. Personal belongings sent with patient. Report given to Alan CHRISTIE. Appropriate documentation sent with patient.
[2021-05-23 07:22] LABS: Partial Thromboplastin Time 131.2 SECONDS (22.3-36.8)
--- NOTE | 2021-05-23 07:43 | PC.NURSE ---
Patient transfered to [facility] 3 with little difficulty, transferring herself to the bed with no assistance. We discussed the floor's policies and differences from IMU. She was pleasant and cooperative.
[2021-05-23] MEDS: LIDOCAINE 5% PATCH 1 PATCH TRANSDERM (09:36)
[2021-05-23] MEDS: ATORVASTATIN 20 MG TABLET PO (09:37)
[2021-05-23] MEDS: FLUoxetine HCL 20 MG CAPSULE 40 MG PO (09:37)
[2021-05-23] MEDS: FAMOTIDINE 20 MG TABLET PO (09:37)
[2021-05-23] MEDS: FENOFIBRATE NANOCRYSTALLIZED 145 MG TABLET PO (09:37)
[2021-05-23] MEDS: DOCUSATE SODIUM 100 MG CAPSULE PO (09:37)
[2021-05-23] MEDS: PANTOPRAZOLE 40 MG TABLET PO (09:37)
[2021-05-23] MEDS: ALPRAZolam (*CRX) 0.25 MG TABLET PO ×2 (09:42→16:48)
[2021-05-23] MEDS: APIXABAN 5 MG TABLET 10 MG PO (09:43)
[2021-05-23] MEDS: ONDANSETRON INJ 4 MG/2 ML VIAL IV PUSH (11:51)
--- NOTE | 2021-05-23 18:00 | PM.DS ---
DS: Admitting Diagnosis Admitting Diagnosis Pleuritic chest pain with hemoptysis DS: Discharge Diagnosis Discharge Diagnosis (1) Pulmonary embolism with infarction: Code(s): I26.99 - Other pulmonary embolism without acute cor pulmonale Status: Acute Assessment and Plan: Patient presents with complaints of pleuritic chest pain and hemoptysis. She was recently hospitalized elsewhere. CT of the chest showing bilateral pulmonary emboli with moderate clot burden and right lower lobe pulmonary infarct; PNA felt less likely. Echo showing EF 65-70% with grade I diastolic dysfunction but nml right atrium and ventricle. Bilateral lower extremity Doppler negative for DVT. She had splinting on the right but this improved with incentive spirometry use and deep breathing exercises. She was started on a heparin drip. Her hemoptysis was present on admission but slowly resolved. She is no longer having hemoptysis. No evidence of blood loss elsewhere. She was encouraged to be out of bed. When her pain improved and oxygen requirement resolved, we switched her to Eliquis; no co-pay with the Eliquis. (2) Hypertension: Code(s): I10 - Essential (primary) hypertension Status: Acute Assessment and Plan: Patient's blood pressure was monitored closely and was low at times. Her home Maxide was stopped. She did not have saddle emboli; no evidence of sepsis. She was not orthostatic and remained asymptomatic. Eating well. Lindsay possibly related to her home medications and bedrest. Patient to monitor at home. (3) Tobacco dependence: Code(s): F17.200 - Nicotine dependence, unspecified, uncomplicated Status: Acute Assessment and Plan: Patient was educated about the benefit of smoking cessation. (4) Hypomagnesemia: Code(s): E83.42 - Hypomagnesemia Status: Acute Assessment and Plan: Mag level not replaced on admission per patient wishes. Mag level was low on recheck and she did allow for repalcement which was done. (5) Anxiety: Code(s): F41.9 - Anxiety disorder, unspecified Status: Acute Assessment and Plan: Patient on fluoxetine and TID Xanax (0.25mg bid and 1mg qhs). She appeared odd and inappropriate so we decreased her Xanax at night and cut back her narcotics. She is not requiring much in the way of pain medication and her mood improved. DS: Summary Hospital Course Reason for hospitalization: 55yo female here for pleuritic chest pain and hemoptysis and found to have PE. Please see H&P for details. Hospital Course: Please see above for details of hospital course Status at Discharge Cognitive/behavioral status at discharge: stable Time Spent with Patient Time attestation: Total time spent providing and/or coordinating discharge services: 40 minutes Time spent: Greater than 30 minutes Exam Narrative: Exam Narrative: Nml BMs. No melana or hematochezia. No further hemoptysis. Slight right flank pain AF 98.5 98/65 99 16 94% ra Gen - NARD Chest - right mid and lower lung field inspiratory crackles, nml RR CV - RRR S1/S2 Abd - Soft, NT/ND, Positive BS Ext - No pedal edema Psych - Nml mood and affect Skin - Warm and dry DS: Data Data Completed and Pending Labs on day of discharge: Labs from last 24 hours 05/23/21 05/22/21 06:00 18:17 APTT 131.2 H 77.1 H Discharge Plan Discharge Attending physician on discharge: Torito Mendez Discharging Clinician: Torito Mendez Anticipated Discharge Date/Time: 05/23/21 18:16 Patient Disposition: Home, Self-Care Activity: other - see discharge instructions Diet: heart healthy Discharge Instructions: No heavy lifting or bearing down. Light activity. Please avoid large gathering, wear face coverings in public and practice social distance. Check blood pressure 1 to 2 times a day. Record and bring into your doctor for review. Call your doctor if you
--- NOTE | 2021-05-23 19:26 | PC.NURSE ---
Pt has been discharged. Pt's IVs were removed and discharge instructions were reviewed with her and her daughter. Both exhibited good understanding of discharge paperwork. Pt was assisted by wheelchair to the front of the building, and to her daughter's car by staff.
== END 2021-05-23 19:00 | disposition home or self-care (01) | DRG 176 ==
LOC: ANHED 21:19 → ANHIMU 05-20 01:57 → ANH3MEDSUR 05-23 18:18 → ANHIMU 05-24 11:47
PROVIDERS: Admitting Provider Internal Medicine; Emergency Provider Emergency Medicine; PCP Internal Medicine; Visit Provider Internal Medicine
DX: I26.99 Other pulmonary embolism without acute cor pulmonale (principal); I10 Essential (primary) hypertension; E83.42 Hypomagnesemia; F41.9 Anxiety disorder, unspecified; E78.5 Hyperlipidemia, unspecified; K21.9 Gastro-esophageal reflux disease without esophagitis; F17.210 Nicotine dependence, cigarettes, uncomplicated
CPT/HCPCS: 36415; 71275; 74177; 80048; 80053; 80069; 81003; 83605; 83690; 83735; 84484; 85025; 85027; 85610; 85730; 93005; 93306; 93970; 94640; 96361; 96374; 96375; 99285; A9270; C8929; J1644; J1885; J2270; J2405; J3475; J7030; Q9957; Q9967

== ENCOUNTER 2024-06-07 14:42 | Outpatient (CLI) | payer BC, SELFPAY ==
[2024-06-07 16:09] LABS: Basophils Absolute Auto 0.1 K/mm3 (0.0-0.1); Basophils Percent Auto 0.6 % (0.2-1.2); Eosinophils Absolute Auto 0.2 K/mm3 (0-0.3); Eosinophils Percent Auto 2.4 % (0-4.4); Hematocrit 46.9 % (37.0-47.0); Hemoglobin 15.6 g/dL (12.0-15.0); Immature Granulocyte Absolute 0.05 K/mm3 (0.00-0.031); Immature Granulocyte Percent A 0.6 % (0-0.5); Lymphocytes Absolute Auto 2.15 K/mm3 (0.9-3.2); Lymphocytes Percent Auto 27.1 % (18.3-44.2); Mean Corpuscular HGB Conc 33.3 g/dl (32-36); Mean Corpuscular Hemoglobin 30.1 pg (26-34); Mean Corpuscular Volume 90.4 fl (80-100); Mean Platelet Volume 11.4 fl (7.4-10.4); Monocytes Absolute Auto 0.6 K/mm3 (0.1-0.6); Monocytes Percent Auto 7.8 % (2.6-8.5); Neutrophils Absolute Auto 4.9 K/mm3 (1.3-6.7); Neutrophils Percent Auto 61.5 % (45.5-73.1); Platelet Count Result 355 k/mm3 (150-375); Red Blood Count 5.19 M/mm3 (4.2-5.4); Red Cell Distribution Width 13.9 % (11.5-14.5); White Blood Count 7.9 K/mm3 (4.5-10.0)
[2024-06-07 16:22] LABS: Alanine Aminotransferase 18 U/L (6-35); Albumin Level 3.6 g/dL (3.5-5.1); Alkaline Phosphatase 124 U/L (38-126); Anion Gap 7 mmol/L (4-12); Aspartate Amino Transferase 21 U/L (14-36); Bilirubin,Total 0.7 mg/dL (0.2-1.3); Blood Urea Nitrogen 6 mg/dL (7-17); Calcium 8.1 mg/dL (8.4-10.2); Carbon Dioxide 31 mmol/L (22-30); Chloride 96 mmol/L (98-107); Cholesterol 172 mg/dL (0-200); Estimated Glomerular Filt Rate > 60; Glucose 105 mg/dL (65-110); Potassium 2.9 mmol/L (3.4-5.0); Sodium 134 mmol/L (137-145)
== END 2024-06-07 14:43 | disposition home or self-care (01) ==
PROVIDERS: PCP Family Medicine; Visit Provider Nurse Practitioner Family
DX: E78.5 Hyperlipidemia, unspecified (principal); K92.1 Melena; K21.9 Gastro-esophageal reflux disease without esophagitis; K58.9 Irritable bowel syndrome, unspecified
CPT/HCPCS: 36415; 80048; 80076; 82465; 82728; 85025

== ENCOUNTER 2024-07-26 00:57 | Day surgery (SDC) | payer BC, SELFPAY ==
[2024-07-12 14:32] VITALS: BMI 29.9
[2024-07-26 12:42] VITALS: BP 129/79; PULSE 98; RESP 18; TEMP 36.3; O2SAT 97
[2024-07-26] MEDS: LACTATED RINGERS 1,000 ML 150 ML IV CONT (12:50)
--- NOTE | 2024-07-26 12:51 | WPDANESEPPF ---
Anes - Initial Pre Proc Eval Procedure: Operation Date: 07/26/24 14:30 Proposed Procedures p Esophagogastroduodenoscopy - Sheldon Russo MD Date/Time: 07/26/24 12:51 Surgeon: Sheldon Russo MD Pre Op Diagnosis: GERD, Melena, Hyperlipidemia Patient Data Age: 58 Gender: F Height: 1.75 m Weight: 92.3 kg Last Vital Signs Temp 97.4 F L 07/26/24 12:42 Pulse 98 07/26/24 12:42 Resp 18 07/26/24 12:42 BP 129/79 07/26/24 12:42 Pulse Ox 97 07/26/24 12:42 O2 Del Method Room Air 07/26/24 12:42 Allergies Allergy/AdvReac Type Severity Reaction Status Date / Time No Known Allergies Allergy Verified 07/26/24 12:40 Home Medications Medication Instructions Recorded Confirmed Type alprazolam 0.25 mg tablet 0.25 mg PO DAILY 05/19/21 07/26/24 History aspirin 81 mg chewable tablet 81 mg PO HS 05/19/21 07/26/24 History calcium carb-vitamin D3 ER 600 mg 1 tablet PO DAILY 05/19/21 07/26/24 History (1,500 mg)-500 unit tablet,ER 24 hr cholecalciferol (vitamin D3) 25 25 mcg PO DAILY 05/19/21 07/26/24 History mcg (1,000 unit) capsule docusate sodium 100 mg capsule 200 mg PO HS 05/19/21 07/26/24 History fluoxetine 20 mg capsule 40 mg PO DAILY 05/19/21 07/26/24 History trazodone 100 mg tablet 100 mg PO HS 05/19/21 07/26/24 History pantoprazole 40 mg tablet,delayed 40 mg PO BID #180 tabs 03/27/24 07/26/24 Rx release triamterene 37.5 1 tablet PO QAM #90 tabs 05/13/24 07/26/24 Rx mg-hydrochlorothiazide 25 mg tablet albuterol sulfate 2.5 mg/3 mL 2.5 mg (3 mL) inhalation Q4H PRN 06/01/24 07/12/24 Rx (0.083 %) solution for nebulization shortness of breath or wheezing #90 mL alprazolam 1 mg tablet 1 mg PO HS 07/12/24 07/26/24 History atorvastatin 40 mg tablet 40 mg PO HS 07/12/24 07/26/24 History dextroamphetamine-amphetamine 5 mg 5 mg PO DAILY 07/12/24 07/26/24 History tablet diphenhydramine HCl 25 mg capsule 25 mg PO DAILY 07/12/24 07/26/24 History (Benadryl) famotidine 10 mg tablet 10 mg PO DAILY 07/12/24 07/26/24 History potassium chloride 10 mEq 10 meq PO DAILY #30 tabs 07/13/24 07/26/24 Rx tablet,extended release Patient hx anesthesia problems: none Family hx anesthesia problems: none Results Review: All pre-operative results and documents have been reviewed as part of the pre-operative evaluation. [facility] Past Medical History Medical History Acute pulmonary embolism ADHD Allergies Anxiety Asthma Depression GERD (gastroesophageal reflux disease) HLD (hyperlipidemia) Hypomagnesemia IBS (irritable bowel syndrome) Pulmonary embolism with infarction Surgical History Surgical History delivery delivered History of hysterectomy S/P appendectomy S/P wrist surgery Family History Family History Mother Cardiac arrest Congestive heart failure Father History of blood clots Diabetes mellitus Social History Social History Smoking packs per day: 0.25 Smoking cigarettes per day: 5.0 Years smoked: 40 Smoking pack-years: 10.00 Smoking status: Current every day smoker Tobacco type: cigarettes and e-cigarettes/vaping Second hand tobacco smoke exposure: Yes Alcohol intake: never Drinks per week: 2 Substance use: never Substance use type: does not use Living arrangements: with family Gender identity (if verbalized by the patient): Female Spiritual care concerns: No Anes - Eval Final PreProcedure Day of Procedure 07/26/24 12:51 Patient weight: obese Heart: regular rate and rhythm Lungs: clear to auscultation Airway: Mallampati scale class II Neurological: alert and oriented Last oral intake: >/= 8 hours ASA classification: III Emergent: no Anesthet
--- NOTE | 2024-07-26 12:51 | PM.HPGS ---
History of Present Illness History of Present Illness Consent: Risks, benefits, and alternatives have been discussed and questions answered. Patient agrees to proceed with procedure. Chief complaint: GERD, dyspepsia Narrative: Vannessa Javier is a 58 year old female with gerd on pantoprazole and lately more dyspepsia, had egd over 15 years ago. Review of Systems Review of Systems: All systems reviewed & are unremarkable except as noted in HPI and below PMFSH Past Medical History Medical History (Updated 07/26/24 @ 12:53 by Sheldon Russo MD) Acute pulmonary embolism ADHD Allergies Anxiety Asthma Depression Dyspepsia GERD (gastroesophageal reflux disease) HLD (hyperlipidemia) Hypomagnesemia IBS (irritable bowel syndrome) Pulmonary embolism with infarction Surgical History Surgical History delivery delivered History of hysterectomy S/P appendectomy S/P wrist surgery Family History Family History Mother Cardiac arrest Congestive heart failure Father History of blood clots Diabetes mellitus Social History Social History Smoking packs per day: 0.25 Smoking cigarettes per day: 5.0 Years smoked: 40 Smoking pack-years: 10.00 Smoking status: Current every day smoker Tobacco type: cigarettes and e-cigarettes/vaping Second hand tobacco smoke exposure: Yes Alcohol intake: never Drinks per week: 2 Substance use: never Substance use type: does not use Living arrangements: with family Gender identity (if verbalized by the patient): Female Spiritual care concerns: No Meds Home Medications and Allergies Home Medications Medication Instructions Recorded Confirmed Type alprazolam 0.25 mg tablet 0.25 mg PO DAILY 05/19/21 07/26/24 History aspirin 81 mg chewable tablet 81 mg PO HS 05/19/21 07/26/24 History calcium carb-vitamin D3 ER 600 mg 1 tablet PO DAILY 05/19/21 07/26/24 History (1,500 mg)-500 unit tablet,ER 24 hr cholecalciferol (vitamin D3) 25 25 mcg PO DAILY 05/19/21 07/26/24 History mcg (1,000 unit) capsule docusate sodium 100 mg capsule 200 mg PO HS 05/19/21 07/26/24 History fluoxetine 20 mg capsule 40 mg PO DAILY 05/19/21 07/26/24 History trazodone 100 mg tablet 100 mg PO HS 05/19/21 07/26/24 History pantoprazole 40 mg tablet,delayed 40 mg PO BID #180 tabs 03/27/24 07/26/24 Rx release triamterene 37.5 1 tablet PO QAM #90 tabs 05/13/24 07/26/24 Rx mg-hydrochlorothiazide 25 mg tablet albuterol sulfate 2.5 mg/3 mL 2.5 mg (3 mL) inhalation Q4H PRN 06/01/24 07/12/24 Rx (0.083 %) solution for nebulization shortness of breath or wheezing #90 mL alprazolam 1 mg tablet 1 mg PO HS 07/12/24 07/26/24 History atorvastatin 40 mg tablet 40 mg PO HS 07/12/24 07/26/24 History dextroamphetamine-amphetamine 5 mg 5 mg PO DAILY 07/12/24 07/26/24 History tablet diphenhydramine HCl 25 mg capsule 25 mg PO DAILY 07/12/24 07/26/24 History (Benadryl) famotidine 10 mg tablet 10 mg PO DAILY 07/12/24 07/26/24 History potassium chloride 10 mEq 10 meq PO DAILY #30 tabs 07/13/24 07/26/24 Rx tablet,extended release Allergies Allergy/AdvReac Type Severity Reaction Status Date / Time No Known Allergies Allergy Verified 07/26/24 12:40 Vital Signs Vital Signs - 24 hr 07/26/24 12:42 Temperature 97.4 F L Pulse Rate 98 Respiratory Rate 18 Blood Pressure 129/79 Pulse Oximetry 97 Oxygen Delivery Room Air Exam Const: General: comfortable and no acute distress HENMT: Face/Nose/Sinus: Normal nares present Eyes: General: appearance normal, both eyes and all related structures Neck: Neck: no JVD Resp: Auscultation: clear to auscultation bilaterally Cardio: Rate: regular rate Rhythm: regular rhythm GI: Inspection: non-distended GI Palp:
[2024-07-26 13:06] VITALS: BP 112/71; PULSE 86; RESP 20; O2SAT 95
[2024-07-26 13:16] VITALS: BP 109/73; PULSE 84; RESP 20; O2SAT 95
[2024-07-26 13:26] VITALS: BP 128/71; PULSE 82; RESP 20; O2SAT 95
== END 2024-07-26 13:40 | disposition home or self-care (01) ==
PROVIDERS: PCP Family Medicine; Referring Provider Nurse Practitioner Family; Visit Provider Internal Medicine Gastroenterology
PROC: 0DJ08ZZ Inspection of Upper Intestinal Tract, Via Natural or Artificial Opening Endoscopic (ICD-10-PCS; CPT 43235; principal; 2024-07-26 14:30)
DX: K21.00 Gastro-esophageal reflux disease with esophagitis, without bleeding (principal); F90.9 Attention-deficit hyperactivity disorder, unspecified type; F41.9 Anxiety disorder, unspecified; E78.5 Hyperlipidemia, unspecified; F32.A Depression, unspecified; Z86.711 Personal history of pulmonary embolism; Z79.82 Long term (current) use of aspirin; Z79.51 Long term (current) use of inhaled steroids; F17.210 Nicotine dependence, cigarettes, uncomplicated; F17.290 Nicotine dependence, other tobacco product, uncomplicated; E66.9 Obesity, unspecified; Z68.30 Body mass index [BMI] 30.0-30.9, adult
CPT/HCPCS: 43239; 88305; J2001; J2704; J7120

== ENCOUNTER 2024-10-05 13:09 | Outpatient (CLI) | payer BC, SELFPAY ==
[2024-10-05 13:57] LABS: Anion Gap 3 mmol/L (4-12); Blood Urea Nitrogen 8 mg/dL (7-17); Calcium 9.2 mg/dL (8.4-10.2); Carbon Dioxide 32 mmol/L (22-30); Chloride 99 mmol/L (98-107); Estimated Glomerular Filt Rate > 60; Glucose 101 mg/dL (65-110); Potassium 3.4 mmol/L (3.4-5.0); Sodium 134 mmol/L (137-145)
== END 2024-10-05 13:10 | disposition home or self-care (01) ==
LOC: ANHLAB 13:10
PROVIDERS: PCP Family Medicine; Visit Provider Family Medicine
DX: E87.6 Hypokalemia (principal)
CPT/HCPCS: 36415; 80048

== ENCOUNTER 2025-05-24 04:55 | Emergency (ER) | payer BC, SELFPAY ==
--- OUTSIDE RECORDS SUMMARY | 2025-05-24 04:57 | XMS_ITS | Clinical Summary ---
Author Organization [facility] Address [address] [place] [address] Care Team Providers Care Service Station Equipment Mechanic Name Role Phone Unavailable Primary Care Provider Unavailabl e Source Comments [facility],non-owned Affiliates and Associated Physician Practices is amultiple site organization consisting of ambulatory clinics and hospital sitesin [place], [place], [place] and [place]. This disclosure is being madepursuant to the Care Everywhere program and may not contain all information available regarding this patient. Last updated 18.[facility] adjust Social History Tobacco Use Types Packs/Day Years Used Date Smoking Tobacco: Never Assessed Comments Unknown Sex and Gender Information Value Date Recorded Sex Assigned at Not on file Legal Sex Female 6:[address] Gender Identity Not on file Sexual Orientation Not on file Plan of Treatment Health Maintenance Due Date Last Done Comments COLOGUARD (AGES 45-75) - COL ON CA SCREENING 1963 COLON MONITORING 1963 COLONOSCOPY - COLON CA SCREENING 1963 CT COLONOGRAPHY - COLON CA SCREENING 1963 Colorectal Cancer Screening 1963 FIT - COLON CA SCREENING 1963 FLEX SIG - COLON CA SCREENING 1963 LIPID TESTING 1963 HIV SCREENING 1978 HEPATITIS C SCREENING 09/05/1981 DTAP/TDAP/TD VACCINES (1 - Tdap) 1982 PAP SMEAR 1984 MAMMOGRAM 12/27/2011 12/27/2009 PNEUMOCOCCAL VACCINE 50+ (1 of 1 - PCV) 2013 ZOSTER VACCINE (1 of 2) 2013 COVID-19 VACCINE (1 - 2024-2 5 season) 2024 DEPRESSION SCREENING 11/02/2024 INFLUENZA VACCINE (#1) 2025 Respiratory Syncytial Virus (RSV) Vaccine Pt: or over 60 yrs (1 - 1-dose 75+ series) 2038 HEPATITIS B VACCINE Aged Out No longe r eligible based on patient's age to complete this topic HIB VACCINE Aged Out No longer eligi ble based on patient's age to complete this topic HPV VACCINE Aged Out No longer eligi ble based on patient's age to complete this topic MENINGOCOCCAL (Group B) VACC INE SHARED DECISION-MAKING Aged Out No longer eligibl e based on patient's age to complete this topic MENINGOCOCCAL GROUPS A/C/Y/W VACCINE Aged Out No longer eligible b ased on patient's age to complete this topic Procedures Procedure Name Priority Date/Time Associated Diagnosis Comments MAMMO BILAT SCREENING Routine 12/27/2009 3:[address] Other Screening Mammogram from Last 3 Months or Most Recently Relevant to Health Maintenance Results * MAMMO SCREENING DIGITAL IMAGE BILAT (12/27/2009 3:[address]) Anatomical Region Laterality Modality Breast Bilateral Mammography 12/27/2009 4:[address] Narrative 12/31/2009 10:[address] EXAM: DIGITAL BILATERAL SCREENING MAMMOGRAMS WITH CAD CORRELATION DATE: 12/27/2009. PREVIOUS EXAM DATE: None available. INDICATION: Screening. TECHNIQUE: Bilateral craniocaudad (CC) and mediolateral oblique (MLO) views. The study was interpreted with the aid of CAD. TECHNOLOGIST: Polly Mclean, RT(R) (M) TISSUE DENSITY: Heterogeneously dense. FINDINGS: There is no discrete abnormality. No specific microcalcifications are identified. There are focal areas of glandular density bilaterally. ASSESSMENT: BI-RADS CATEGORY 2 BENIGN FINDINGS. RECOMMENDATIONS: Followup in one year. The above findings should be correlated with physical examination. A relatively nonspecific study should not preclude additional evaluation if suspicious findings are present clinically. [facility] [employer] [facility] Procedure Note Shikha Ramey / Aydee Hatch (Clerical Edit), RT(R)(M) - 12/28/2009 EXAM: DIGITAL BILATERAL SCREENING MAMMOGRAMS WITH CAD CORRELATION DATE: 12/27/2009. PREVIOUS EXAM DATE: None available. INDICATION: Screening. TECHNIQUE: Bilateral craniocaudad (CC) and mediolateral oblique (MLO) views. The study was interpreted with the aid of CAD. TECHNOLOGIST: RT Anni(R) (M) TISSUE DENSITY: Heterogeneously dense. FINDINGS: There is no discrete abnormality. No specific microcalcifications are identified. There are focal areas of glandular density bilaterally. ASSESSMENT: BI-RADS CATEGORY 2 BENIGN FINDINGS. RECOMMENDATIONS: Followup in one year. The above findings should be correlated with physical examination. A relatively nonspecific study should not preclude additional evaluation if suspicious findings are present clinically. [facility] [employer] [facility] Danilo Messina MD MAMMO ORDERABLES Edited Result - Final from Last 3 Months or Most Recently Relevant to Health Maintenance Insurance SELF PAY NO INSURANCE Member Subscriber Plan / Payer (Ef fective for All Dates) Name:Vannessa Javier Member ID:Not on file Relation to Subscriber:Not on file Name:VANNESSA JAVIER Subscriber ID:Not on file (Home) Address: [address] [place] [id number] Payer ID:Not on file Group ID:Not on file Type:Self Pay Address: [place], [place]
--- OUTSIDE RECORDS SUMMARY | 2025-05-24 04:57 | XMS_ITS | Continuity of Care Document ---
Author Organization [facility] Address [address] [place] [address] [place] [id number] Phone Care Team Providers Care Production Officer Name Role Phone Carlene OT/Adolfo SINGH Unavailable Unavailable Procedures Procedure Date Neuromuscular Re-Ed Therapeutic Activities Therapeutic Exercise Ultrasound Manual Therapy Hot or Cold Pack Therapeutic Activities Progress Note Neuromuscular Re-Ed Manual Therapy Therapeutic Exercise Ultrasound Hot or Cold Pack Neuromuscular Re-Ed Therapeutic Activities Therapeutic Exercise Manual Therapy Ultrasound Hot or Cold Pack Therapeutic Activities Hot or Cold Pack Manual Therapy OT Evaluation Low Complexity Neuromuscular Re-Ed Therapeutic Exercise Ultrasound OT RE-EVALUATION THERAPEUTIC EXERCISES MANUAL THERAPY PARAFFIN BATH Theraputty THERAPEUTIC EXERCISES NEUROMUSCULAR RE-ED MANUAL THERAPY FUNC ACTIVITY 15 MIN PARAFFIN BATH THERAPEUTIC EXERCISES NEUROMUSCULAR RE-ED MANUAL THERAPY FUNC ACTIVITY 15 MIN PARAFFIN BATH THERAPEUTIC EXERCISES NEUROMUSCULAR RE-ED MANUAL THERAPY PARAFFIN BATH THERAPEUTIC EXERCISES NEUROMUSCULAR RE-ED MANUAL THERAPY PARAFFIN BATH THERAPEUTIC EXERCISES NEUROMUSCULAR RE-ED MANUAL THERAPY FUNC ACTIVITY 15 MIN PARAFFIN BATH THERAPEUTIC EXERCISES NEUROMUSCULAR RE-ED MANUAL THERAPY FUNC ACTIVITY 15 MIN PARAFFIN BATH THERAPEUTIC EXERCISES NEUROMUSCULAR RE-ED MANUAL THERAPY FUNC ACTIVITY 15 MIN PARAFFIN BATH THERAPEUTIC EXERCISES MANUAL THERAPY FUNC ACTIVITY 15 MIN PARAFFIN BATH THERAPEUTIC EXERCISES NEUROMUSCULAR RE-ED FUNC ACTIVITY 15 MIN PARAFFIN BATH THERAPEUTIC EXERCISES NEUROMUSCULAR RE-ED MANUAL THERAPY FUNC ACTIVITY 15 MIN PARAFFIN BATH OT RE-EVALUATION NEUROMUSCULAR RE-ED MANUAL THERAPY FUNC ACTIVITY 15 MIN PARAFFIN BATH THERAPEUTIC EXERCISES NEUROMUSCULAR RE-ED MANUAL THERAPY FUNC ACTIVITY 15 MIN PARAFFIN BATH THERAPEUTIC EXERCISES MANUAL THERAPY FUNC ACTIVITY 15 MIN PARAFFIN BATH THERAPEUTIC EXERCISES MANUAL THERAPY FUNC ACTIVITY 15 MIN PARAFFIN BATH THERAPEUTIC EXERCISES NEUROMUSCULAR RE-ED MANUAL THERAPY FUNC ACTIVITY 15 MIN PARAFFIN BATH THERAPEUTIC EXERCISES NEUROMUSCULAR RE-ED MANUAL THERAPY FUNC ACTIVITY 15 MIN PARAFFIN BATH THERAPEUTIC EXERCISES MANUAL THERAPY FUNC ACTIVITY 15 MIN PARAFFIN BATH THERAPEUTIC EXERCISES MANUAL THERAPY FUNC ACTIVITY 15 MIN PARAFFIN BATH THERAPEUTIC EXERCISES NEUROMUSCULAR RE-ED MANUAL THERAPY FUNC ACTIVITY 15 MIN PARAFFIN BATH THERAPEUTIC EXERCISES MANUAL THERAPY FUNC ACTIVITY 15 MIN PARAFFIN BATH THERAPEUTIC EXERCISES MANUAL THERAPY FUNC ACTIVITY 15 MIN PARAFFIN BATH THERAPEUTIC EXERCISES MANUAL THERAPY FUNC ACTIVITY 15 MIN HOT/COLD PACK OT RE-EVALUATION THERAPEUTIC EXERCISES MANUAL THERAPY FUNC ACTIVITY 15 MIN HOT/COLD PACK THERAPEUTIC EXERCISES MANUAL THERAPY FUNC ACTIVITY 15 MIN HOT/COLD PACK Tape, Non-waterproof Gauze Pad Gloves, sterile, pair OT EVALUATION THERAPEUTIC EXERCISES MANUAL THERAPY HOT/COLD PACK OT EVALUATION THERAPEUTIC EXERCISES ORTHOTIC FITTING Forearm Advance Directives Directive Yes / No Effective Date File Name No Information Encounters Encounter Description Practice Location Reason(s) For Visit Diagnoses Date Provider Providers Copied on Encounter [facility], [address] [facility] [address], [place], [place], [id number], [place] tel:[phone] [place] No Information 1 Carlene Mata. . Referring Provider: Mario Lynne, [address] [facility], [place], [address]. tel:[phone] [facility] [address], [place], [place], [id number], [place] tel:[phone] [place] No Information Jan-0 1 Redohl Sravanthi. . Referring Provider: Mario Lynne, [address], [place], [address]. tel:[phone] [facility] [address], [place], [place], [address], [place] tel:[phone] [place] No Information Mar-3 1 Heslin Adolfo. . Referring Provider: Mario Lynne, [address], [place], [address]. tel:[phone] [facility] [address] [place], [place] [address], [place], [place], [id number], tel:[phone] [place] No Information Dec-2 1 Heslin Adolfo. . Referring Provider: Mario Lynne, [address], [place], [address]. tel:[phone] [facility] [address] [place], [place] [address], [place], [place], [address], tel:[phone] [employer] No Information 3 Otf Rivera. [address] [place] [address], [address], [place], [place], [place], [place]. tel:[phone] Referring Provider: Alan Nuno, [address], [place], [address]. tel:[phone] [facility] [address] [place], [place] [address], [place], [place], [address], [place] tel:[phone] [facility] [employer] No Information 3 Partha Chambers. [address] [facility], [address], [place], [place], [place], [place]. tel:[phone] Referring Provider: Alan Nuno, [address], [place], [address]. tel:[phone], [place], [place], [address], tel:[phone] [employer] No Information Lico-1 0-201 3 Otf Miguel. [address] [place] [address], [address], [place], [place], [place], . [phone] Referring Provider: Alan Nuno, [address], [place], [address]. tel:[phone], [place], [place], [address], tel:[phone] [employer] No Information Lico-0 7-201 3 Otf Miguel. [address] [place] [address], [address], [place], [place], . tel:[phone] Referring Provider: Alan Nuno, [address], [place], [address]. tel:[phone] [address], [place], [place], [address], tel:[phone] [employer] No Information Lico-0 5-201 3 [place] Miguel. [address] [place] [address], [address], [place], [place], . [phone] Referring Provider: Alan Nuno, [address], [place], [address]. tel:[phone], [place], [place], [address], [place] tel:[phone] [facility] [employer] No Information Lico-0 3-201 3 [place] Miguel. [address] [place] [address], [address], [place], [place], . [phone] Referring Provider: Alan Nuno, [address], [place], [address]. tel:[phone], [place], [place], [address], [place] tel:[phone] [employer] No Information May-3 1-201 3 [place] Miguel. [address] [place] [address], [address], [place], [place], . tel:[phone] Referring Provider: Alan Nuno, [address], [place], [address]. tel:[phone], [place], [place], [address], tel:[phone] [employer] No Information May-2 9-201 3 Otf Miguel. [address] [place] [address], [address], [place], [place], . tel:[phone] Referring Provider: Alan Nuno, [address], [place], [address]. tel:[phone] [address], [place], [place], [address], tel:[phone] [facility] [employer] No Information May-2 8-201 3 [place] Miguel. [address] [place] [address], [address], [place], [place], . tel:[phone] Referring Provider: Alan Nuno, [address], [place], [address]. tel:[phone], [place], [place], [address], tel:[phone] [employer] No Information May-2 4-201 3 Otf Miguel. [address] [place] [address], [address], [place], [place], . tel:[phone] Referring Provider: Alan Nuno, [address], [place], [address]. tel:[phone], [place], [place], [address], tel:[phone] [employer] No Information May-2 2-201 3 [place] Miguel. [address] [place] [address], [address], [place], [place], . tel:[phone] Referring Provider: Alan Nuno, [address], [place], [address]. tel:[phone] [address], [place], [place], [address], tel:[phone] [employer] No Information March- 7-201 3 Otf Miguel. [address] [place] [address], [address], [place], [place], . tel:[phone] Referring Provider: Alan Nuno, [address], [place], [address]. tel:[phone] [address], [place], [place], [address], tel:[phone] [employer] No Information March- 5-201 3 Otf Miguel. [address] [place] [address], [address], [place], [place], . tel:[phone] Referring Provider: Alan Nuno, [address], [place], [address]. tel:[phone] [address], [place], [place], [address], tel:[phone] [employer] No Information March- 3-201 3 [place] Miguel. [address] [place] [address], [address], [place], [place], . tel:[phone] Referring Provider: Alan Nuno, [address], [place], [address]. tel:[phone], [place], [address], tel:[phone] [employer] No Information May-1 0-201 3 [place] Miguel. [address] [place] [address], [address], [place], [place], . tel:[phone] Referring Provider: Alan M Brown, [address], [place], [address]. tel:[phone], [place], [place], [address], tel:[phone] [facility] [employer] No Information May-0 7-201 3 Chavis Reyes. [address] [place] [address], [address], [place], [place], . tel:[phone] Referring Provider: Alan Nuno, [address], [place], [address]. tel:[phone] [address], [place], [place], [address], tel:[phone] [employer] No Information May-0 6-201 3 Otf Miguel. [address] [place] [address], [address], [place], . tel:[phone] Referring Provider: Alan Nuno, [address], [place], [address]. tel:[phone] [address], [place], [place], [address], tel:[phone] [employer] No Information May-0 3-201 3 [place] Miguel. [address] [place] [address], [address], [place], . tel:[phone] Referring Provider: Alan Nuno, [address], [place], [address]. tel:[phone] [address], [place], [place], [address], tel:[phone] [facility] [employer] No Information May-0 1-201 3 Otf Miguel. [address] [place] [address], [address], [place], [place], . tel:[phone] Referring Provider: Alan Nuno, [address], [place], [address]. tel:[phone], [place], [place], [address], tel:[phone] [employer] No Information Apr-2 9-201 3 Tenny Eol. [address] [place] [address], [address], [place], [place], . tel:[phone] Referring Provider: Alan Nuno, [address], [place], [address]. tel:[phone] [address], [place], [place], [address], tel:[phone] [employer] [place] No Information Apr-2 6-201 3 [place] Miguel. [address] [place] [address], [address], [place], [place], . tel:[phone] Referring Provider: Alan Nuno, [address], [place], [address]. tel:[phone] [address], [place], [place], [address], tel:[phone] [employer] [place] No Information Apr-2 4-201 3 Otf Miguel. [address] [place] [address], [address], [place], [place], . tel:[phone] Referring Provider: Alan Nuno, [address], [place], [address]. tel:[phone] [address], [place], [place], [address], tel:[phone] [employer] No Information Apr-2 2-201 3 Otf Miguel. [address] [place] [address], [address], [place], . tel:[phone] Referring Provider: Alan Nuno, [address], [place], [address]. tel:[phone], [place], [place], [address], tel:[phone] [employer] [place] No Information 3 Otf Miguel. [address] [facility], [address], [place], . tel:[phone] Referring Provider: Alan Nuno, [address], [place], [address]. tel:[phone], [place], [address], [phone] [employer] [place] No Information 3 June Lakekashif Rivera. [address] [place] [address], [address], [place], . tel:[phone] Referring Provider: Alan Nuno, [address], [place], [address]. tel:[phone], [id number], tel:[phone] [facility] [place] No Information 3 Otf Miguel. [address] [place] [address], [address], [place], . tel:[phone] Referring Provider: Alan Nuno, [address], [place], [address]. tel:[phone], [id number], tel:[phone] Standard Pain in joint involving hand 3 Yaakov Cherry. [address] [place] [address], [address], [place], [place], [place]. tel:[phone] Referring Provider: Alan Nuno, [address], [place], [address]. tel:[phone] Family History Family Member Type Diagnosis Age At Onset No Information Payers Payer name Insurance type Covered green party ID Perry richards(s) Hernández [id number] Social History Type Description Quantity Date Captured Comments Sex Female Smoking Status No Information Chief Complaint And Reason For Visit No Information Reason For Referral Reason For Referral No Information Plan Of Treatment Date Type Action Status Goal Tobacco cessation counseling completed Goal Tobacco Cessation Counseling completed History Of Present Illness Encounter Date Complaint History Of Prese nt Illness No Information Functional Status Date Functional Assessmen t No Information Instructions Date Instruction Additional Infor lizzette Dietary needs education Related to Overweight Prescribed activity/exercise edu cation Related to Overweight Assessments Type Assessment Date No Information Patient Care Teams Name Effective Dates (start - stop) Status Members No Information
--- OUTSIDE RECORDS SUMMARY | 2025-05-24 05:59 | XMS_ITS | Clinical Summary ---
Author Organization [facility] Address [address] [place] [address] Care Team Providers Care Exhauster Engineer Name Role Phone Unavailable Primary Care Provider Unavailabl e Source Comments [facility],non-owned Affiliates and Associated Physician Practices is amultiple site organization consisting of ambulatory clinics and hospital sitesin [place], [place] and [place]. This disclosure is being madepursuant to the Care Everywhere program and may not contain all information available regarding this patient. Last updated 18.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 [facility] [employer] [facility] Procedure Note [...] if suspicious findings are present clinically. [facility] [employer] [facility] Danilo Messina MD MAMMO ORDERABLES Edited Result - Final from Last 3 Months or Most Recently Relevant to Health Maintenance Insurance SELF PAY NO INSURANCE Member Subscriber Plan / Payer (Ef fective for All Dates) Name:Vannessa Javier Member ID:Not on file Relation to Subscriber:Not on file Name:VANNESSA JAVIER Subscriber ID:Not on file (Home) Address: [address] [place] [id number] Payer ID:Not on file Group ID:Not on file Type:Self Pay Address: [place]
--- OUTSIDE RECORDS SUMMARY | 2025-05-24 05:59 | XMS_ITS | Continuity of Care Document ---
Author Organization [facility] Address [address] [place] [address] [place] [id number] Phone Care Team Providers Care Alterations Manager Name Role Phone Carlene OT/Adolfo SINGH Unavailable Unavailable Procedures Procedure Date Neuromuscular Re-Ed Therapeutic Activities Therapeutic Exercise Ultrasound Manual Therapy Hot or Cold Pack Therapeutic Activities Neuromuscular Re-Ed Progress Note Hot or Cold Pack Manual Therapy Therapeutic Exercise Ultrasound Neuromuscular Re-Ed Therapeutic Activities Therapeutic Exercise Manual Therapy Ultrasound Hot or Cold Pack Therapeutic Exercise OT Evaluation Low Complexity Neuromuscular Re-Ed Hot or Cold Pack Therapeutic Activities Manual Therapy Ultrasound OT RE-EVALUATION THERAPEUTIC EXERCISES MANUAL THERAPY [...] Diagnoses Date Provider Providers Copied on Encounter [facility], [address] [facility] [address], [place], [place], [id number], [place] tel:[phone] [place] No Information 1 Carlene Mata. . Referring Provider: Mario Lynne, [address] [facility] [address], [place], [address]. tel:[phone] [facility] [address], [place], [place], [id number], [place] tel:[phone] [place] No Information Jan-0 1 Redohl Sravanthi. . Referring Provider: Mario Lynne, [address], [place], [address]. tel:[phone] [facility] [address], [place], [place], [id number], [place] tel:[phone] [place] No Information Mar-3 1 Heslin Adolfo. . Referring Provider: Mario Lynne, [address], [place], [address]. tel:[phone] [facility] [address] [place], [place] [address], [place], [place], [id number], tel:[phone] [place] No Information Dec-2 1 Heslin Adolfo. . Referring Provider: Mario Lynne, [address], [place], [address]. tel:[phone] [facility] [address] [place], [place] [address], [place], [place], [id number], tel:[phone] [place] No Information 3 Otf Rivera. [address] [place] [address], [address], [place], [place], [facility], [place]. tel:[phone] Referring Provider: Alan Nuno, [address], [place], [address]. tel:[phone] [facility] [address] [place], [place] [address], [place], [place], [id number], [place] tel:[phone] [place] No Information 3 Partha Chambers. [address] [facility], [address], [place], [place], [facility], [place]. tel:[phone] Referring Provider: Alan Nuno, [address], [place], [address]. tel:[phone], [place], [place], [id number], tel:[phone] [place] No Information Lico-1 0-201 3 Otf Miguel. [address] [place] [address], [address], [place], [place], [facility], . [phone] Referring Provider: Alan Nuno, [address], [place], [address]. tel:[phone], [place], [place], [id number], tel:[phone] [place] No Information Lico-0 7-201 3 Otf Miguel. [address] [place] [address], [address], [place], [facility], . tel:[phone] Referring Provider: Alan Nuno, [address], [place], [address]. tel:[phone] [address], [place], [place], [address], tel:[phone] [place] No Information Lico-0 5-201 3 Brimfield Miguel. [address] [place] [address], [address], [place], [facility], . [phone] Referring Provider: Alan Nuno, [address], [place], [address]. tel:[phone], [place], [place], [id number], [place] tel:[phone] [place] No Information Lico-0 3-201 3 Brimfield Miguel. [address] [place] [address], [address], [place], [facility], . [phone] Referring Provider: Alan Nuno, [address], [place], [address]. tel:[phone], [place], [place], [id number], [place] tel:[phone] [place] No Information May-3 1-201 3 Brimfield Miguel. [address] [place] [address], [address], [place], [facility], . tel:[phone] Referring Provider: Alan Nuno, [address], [place], [address]. tel:[phone], [place], [place], [address], tel:[phone] [place] No Information May-2 9-201 3 Otf Miguel. [address] [place] [address], [address], [place], [facility], . tel:[phone] Referring Provider: Alan Nuno, [address], [place], [address]. tel:[phone] [address], [place], [place], [address], tel:[phone] [place] No Information May-2 8-201 3 Brimfield Miguel. [address] [place] [address], [address], [place], [facility], . tel:[phone] Referring Provider: Alan Nuno, [address], [place], [address]. tel:[phone], [place], [place], [id number], tel:[phone] [place] No Information May-2 4-201 3 Otf Miguel. [address] [place] [address], [address], [place], [facility], . tel:[phone] Referring Provider: Alan Nuno, [address], [place], [address]. tel:[phone], [place], [place], [address], tel:[phone] [place] No Information May-2 2-201 3 Brimfield Miguel. [address] [place] [address], [address], [place], [facility], . tel:[phone] Referring Provider: Alan Nuno, [address], [place], [address]. tel:[phone] [address], [place], [place], [id number], tel:[phone] [place] No Information March- 7-201 3 Otf Miguel. [address] [place] [address], [address], [place], [facility], . tel:[phone] Referring Provider: Alan Nuno, [address], [place], [address]. tel:[phone] [address], [place], [place], [address], tel:[phone] [place] No Information March- 5-201 3 Otf Miguel. [address] [place] [address], [address], [place], [facility], . tel:[phone] Referring Provider: Alan Nuno, [address], [place], [address]. tel:[phone] [address], [place], [place], [id number], tel:[phone] [place] No Information March- 3-201 3 Brimfield Miguel. [address] [place] [address], [address], [place], [facility], . tel:[phone] Referring Provider: Alan Nuno, [address], [place], [address]. tel:[phone], [place], [id number], tel:[phone] [place] No Information May-1 0-201 3 Brimfield Miguel. [address] [place] [address], [address], [place], [facility], . tel:[phone] Referring Provider: Alan M Brown, [address], [place], [address]. tel:[phone], [place], [place], [address], tel:[phone] [place] No Information May-0 7-201 3 Chavis Reyes. [address] [place] [address], [address], [place], [facility], . tel:[phone] Referring Provider: Alan Nuno, [address], [place], [address]. tel:[phone], [place], [place], [address], tel:[phone] [place] No Information May-0 6-201 3 Otf Miguel. [address] [place] [address], [address], [place], [facility], . tel:[phone] Referring Provider: Alan Nuno, [address], [place], [address]. tel:[phone] [address], [place], [place], [address], tel:[phone] [place] No Information May-0 3-201 3 Brimfield Miguel. [address] [place] [address], [address], [place], [facility], . tel:[phone] Referring Provider: Alan Nuno, [address], [place], [address]. tel:[phone] [address], [place], [place], [address], tel:[phone] [place] No Information May-0 1-201 3 Otf Miguel. [address] [place] [address], [address], [place], [facility], . tel:[phone] Referring Provider: Alan Nuno, [address], [place], [address]. tel:[phone], [place], [place], [address], tel:[phone] [place] No Information Apr-2 9-201 3 Tenny Elo. [address] [place] [address], [address], [place], [facility], . tel:[phone] Referring Provider: Alan Nuno, [address], [place], [address]. tel:[phone] [address], [place], [place], [address], tel:[phone] [place] No Information Apr-2 6-201 3 Brimfield Miguel. [address] [place] [address], [address], [place], [facility], . tel:[phone] Referring Provider: Alan Nuno, [address], [place], [address]. tel:[phone] [address], [place], [place], [address], tel:[phone] [place] No Information Apr-2 4-201 3 Otf Miguel. [address] [place] [address], [address], [place], [facility], . tel:[phone] Referring Provider: Alan Nuno, [address], [place], [address]. tel:[phone] [address], [place], [place], [address], tel:[phone] [place] No Information Apr-2 2-201 3 Otf Miguel. [address] [place] [address], [address], [place], [facility], . tel:[phone] Referring Provider: Alan Nuno, [address], [place], [address]. tel:[phone], [place], [place], [address], tel:[phone] [place] No Information 3 Otf Miguel. [address] [facility], [address], [place], [facility], . tel:[phone] Referring Provider: Alan Nuno, [address], [place], [address]. tel:[phone], [place], [id number], [phone] [place] No Information 3 Brimfieldkashif Rivera. [address] [place] [address], [address], [place], [facility], . tel:[phone] Referring Provider: Alan Nuno, [address], [place], [address]. tel:[phone], [id number], tel:[phone] [place] No Information 3 Otf Miguel. [address] [place] [address], [address], [facility], . tel:[phone] Referring Provider: Alan Nuno, [address], [place], [address]. tel:[phone], [id number], tel:[phone] [place] Pain in joint involving hand 3 Yaakov Cheryr. [address] [place] [address], [address], [place], [facility], [place]. tel:[phone] Referring Provider: Alan Nuno, [address], [place], [address]. tel:[phone] Family History Family Member Type Diagnosis Age At Onset No Information Payers Payer name Insurance type Covered constitution party ID Perry richards(s) Hernández [id number] Social History Type Description Quantity Date Captured [...]
--- NOTE | 2025-05-24 06:12 | ED.EYEPROB ---
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 She has been dealing with herpes zoster ophthalmicus ever since and sees Ophthalmology on outpatient basis. She saw her business risk consultant yesterday and they did dilated eye examination and gave her tetracaine drops with immediate relief of patient's left eye pain. They prescribed valacyclovir and a refill of her valacyclovir eyedrops. She was not able to fill the prescription yet has been taking Tylenol at home without any relief of symptoms. She came to the emergency department to get more topical numbing drops. Denies any other symptoms. This is a chronic issue for her for the last few months and she sees an business risk consultant already for this. No change in her vision from baseline, no headache, trauma or issues moving the eye. No drainage or pus. No fever, nauseousness or vomiting. Related Data Home Medications ?Medication ?Instructions ?Recorded ?Confirmed ?Last Taken ?Type alprazolam 0.25 mg tablet 0.25 mg PO DAILY 05/19/21 12/26/24 07/25/24 History aspirin 81 mg chewable tablet 81 mg PO HS 05/19/21 12/26/24 07/25/24 History calcium carb-vitamin D3 ER 600 mg 1 tablet PO DAILY 05/19/21 12/26/24 07/25/24 History (1,500 mg)-500 unit tablet,ER 24 hr cholecalciferol (vitamin D3) 25 25 mcg PO DAILY 05/19/21 12/26/24 07/25/24 History mcg (1,000 unit) capsule docusate sodium 100 mg capsule 200 mg PO HS 05/19/21 12/26/24 07/25/24 History fluoxetine 20 mg capsule 40 mg PO DAILY 05/19/21 12/26/24 07/25/24 History trazodone 100 mg tablet 100 mg PO HS 05/19/21 12/26/24 07/25/24 History alprazolam 1 mg tablet 1 mg PO HS 07/12/24 12/26/24 07/25/24 History dextroamphetamine-amphetamine 5 mg 5 mg PO DAILY 07/12/24 12/26/2424 History tablet diphenhydramine HCl 25 mg capsule 25 mg PO DAILY 07/12/24 12/26/24 07/25/24 History (Benadryl) famotidine 10 mg tablet 10 mg PO BID 10/31/24 12/26/24 Unknown History Allergies Allergy/AdvReac Type Severity Reaction Status Date / Time No Known Allergies Allergy Verified 05/24/25 04:55 Review of Systems Review of Systems: As reviewed above in [facility] Past Medical History Medical History Dyspepsia HLD (hyperlipidemia) ADHD Depression IBS (irritable bowel syndrome) GERD (gastroesophageal reflux disease) Asthma Allergies Anxiety Hypomagnesemia Pulmonary embolism with infarction Acute pulmonary embolism Surgical History Surgical History S/P wrist surgery S/P appendectomy History of hysterectomy delivery delivered Family History Family History Mother Cardiac arrest Congestive heart failure Father History of blood clots Diabetes mellitus Social History Social History Smoking packs per day: 0.25 Smoking cigarettes per day: 5.0 Years smoked: 40 Smoking pack-years: 10.00 Smoking status: Former smoker Tobacco type: cigarettes and e-cigarettes/vaping Second hand tobacco smoke exposure: Yes Alcohol intake: never Drinks per week: 2 Substance use: never Substance use type: does not use Living arrangements: with family Gender identity (if verbalized by the patient): Female Spiritual care concerns: No Exam Narrative: GENERAL: [Well-appearing, well-nourished, and in no acute distress.] HEAD: [Normocephalic, atraumatic.] EYES: Pupils are equal reactive to light 4 mm, left eye has corneal injection but sparing limbus. No purulent drainage, no extraocular movement restrictions, no pain with extraocular movement. Light sensitivity. Pain relief with tetracaine. ENT: Nares clear, no rhinorrhea or epistaxis. Mucous membranes moist. NECK: Supple. CHEST: No respiratory distress SKIN: Warm, dry, no rash. NEURO: [No focal deficits]. 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 She has been dealing with herpes zoster ophthalmicus ever since and sees Ophthalmology on outpatient basis. She saw her business risk consultant yesterday and they did dilated eye examination and gave her tetracaine drops with immediate relief of patient's left eye pain. They prescribed valacyclovir and a refill of her valacyclovir eyedrops. She was not able to fill the prescription yet has been taking Tylenol at home without any relief of symptoms. She came to the emergency department to get more topical numbing drops. Denies any other symptoms. This is a chronic issue for her for the last few months and she sees an business risk consultant already for this. No change in her vision from baseline, no headache, trauma or issues moving the eye. No drainage or pus. No fever, nauseousness or vomiting. Pupils are equal reactive to light 4 mm, left eye has corneal injection but sparing limbus. No purulent drainage, no extraocular movement restrictions, no pain with extraocular movement. Light sensitivity. Patient has a known diagnosis of HSV ophthalmicus and already follows up with Ophthalmology. Patient had immediate pain relief after tetracaine administration here. Discussed safety of tetracaine drops for corneal irritation and we prescribed her Toradol eyedrops. She will follow-up with business risk consultant and call them this morning. 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 Take the antiviral medications that were prescribed yesterday. Use the topical Toradol for analgesia. He can also use oral medications for pain control. Follow-up with the ophthalmology group and return with any emergencies. Patient Language: [place] Prescriptions: New ketorolac 0.4 % drops 1 drp LEFT EYE Q6H PRN (Reason: pain) 4 Days Qty: 5 0RF No Action famotidine 10 mg tablet 10 mg PO BID alprazolam 0.25 mg tablet 0.25 mg PO DAILY trazodone 100 mg tablet 100 mg PO HS fluoxetine 20 mg capsule 40 mg PO DAILY docusate sodium 100 mg Capsule 200 mg PO HS aspirin 81 mg Tablet,Chewable 81 mg PO HS cholecalciferol (vitamin D3) 25 mcg (1,000 unit) Capsule 25 mcg PO DAILY calcium carbonate-vitamin D3 600 mg(1,500mg) -500 unit Tablet Extended Release 24 Hr 1 tablet PO DAILY alprazolam 1 mg tablet 1 mg PO HS diphenhydramine HCl [Benadryl] 25 mg Capsule 25 mg PO DAILY dextroamphetamine-amphetamine 5 mg tablet 5 mg PO DAILY albuterol sulfate 2.5 mg /3 mL (0.083 %) solution for nebulization 2.5 mg inhalation Q4H PRN (Reason: shortness of breath or wheezing) Qty: 90 0RF atorvastatin 40 mg tablet 40 mg PO HS Qty: 90 3RF triamterene-hydrochlorothiazid 37.5-25 mg tablet 1 tablet PO QAM Qty: 90 2RF potassium chloride 10 mEq tablet extended release 10 meq PO DAILY Qty: 30 3RF pantoprazole 40 mg tablet,delayed release (DR/EC) 40 mg PO BID Qty: 180 1RF Follow-up/Referrals: Michell Patton MD [Primary Care Provider] - Time of Disposition: 06:09
[2025-05-24] MEDS: TETRACAINE HCL 0.5% OPHTH SOLN 4 ML BTL 1 DROP LEFT EYE (06:24)
== END 2025-05-24 06:27 | disposition home or self-care (01) ==
PROVIDERS: Emergency Provider Student in an Organized Health Care Education/Training Program; PCP Family Medicine
DX: T81.49XA Infection following a procedure, other surgical site, initial encounter (principal); B00.52 Herpesviral keratitis; J45.909 Unspecified asthma, uncomplicated; E78.5 Hyperlipidemia, unspecified; K58.9 Irritable bowel syndrome, unspecified; K21.9 Gastro-esophageal reflux disease without esophagitis; F41.9 Anxiety disorder, unspecified; F90.9 Attention-deficit hyperactivity disorder, unspecified type; F32.A Depression, unspecified; Z86.711 Personal history of pulmonary embolism; Z87.891 Personal history of nicotine dependence; Z90.710 Acquired absence of both cervix and uterus; Z79.82 Long term (current) use of aspirin; Z79.899 Other long term (current) drug therapy; Y83.8 Other surgical procedures as the cause of abnormal reaction of the patient, or of later complication, without mention of misadventure at the time of the procedure
CPT/HCPCS: 99283